=== PATIENT | female | born 1985 | race Caucasian/White ===

== ENCOUNTER 2019-02-08 13:28 | Observation (INO) ==
[2019-02-08] MEDS ORDERED: PREDNISONE TAB 20 MG PO NR (15:00)
[2019-02-08] MEDS: NS 1000 ML 1,000 ML IV SCH ×2 (15:01→20:34)
[2019-02-08] MEDS: TUSSIONEX PENNKINETIC SUSP PO PRN (15:05)
[2019-02-08] MEDS: PULMICORT NEB TX 0.5 MG NEB SCH ×2 (15:18→20:17)
[2019-02-08 15:31] LABS: BASOPHILS % (AUTO) 0.2 % (0.2-1.0); EOSINOPHILS % (AUTO) 0.6 % (0.9-2.9); HEMATOCRIT 36.6 % (36.0-47.0); HEMOGLOBIN 12.3 g/dL (12.0-16.0); LYMPHOCYTES # (AUTO) 2.1 X10^3/uL (1.3-2.9); LYMPHOCYTES % (AUTO) 26.8 % (21.0-51.0); MEAN CORPUSCULAR HEMOGLOBIN 31.2 pg (27.0-34.0); MEAN CORPUSCULAR HGB CONC 33.6 g/dL (33.0-35.0); MEAN CORPUSCULAR VOLUME 92.9 fL (80.0-100.0); MEAN PLATELET VOLUME 9.1 fL (7.4-11.0); MONOCYTES # (AUTO) 0.6 x10^3/uL (0.3-0.8); MONOCYTES % (AUTO) 7.4 % (0.0-13.0); NEUTROPHILS # (AUTO) 5.1 x10^3/uL (2.2-4.8); PLATELET COUNT 193 X10^3/uL (150.0-450.0); RED BLOOD COUNT 3.94 X10^6/uL (3.5-5.4); RED CELL DISTRIBUTION WIDTH 14.7 % (11.6-16.5); WHITE BLOOD COUNT 7.9 X10^3/uL (3.6-10.0)
[2019-02-08 15:46] LABS: ALANINE AMINOTRANSFERASE 18 Units/L (12-78); ALBUMIN 2.4 g/dL (3.4-5.0); ALKALINE PHOSPHATASE 127 Units/L (46-116); ASPARTATE AMINO TRANSFERASE 19 Units/L (15-37); BLOOD UREA NITROGEN 4 mg/dL (7-18); CARBON DIOXIDE 24.1 mmol/L (21-32); CHLORIDE 104 mmol/L (98-107); COR CA(FOR HYPOALB) 10.3 mg/dL (8.5-10.1); SODIUM 139 mmol/L (136-145); TOTAL PROTEIN 6.6 g/dL (6.4-8.2); eGFR NON BLACK RACES > 60 (>60)
[2019-02-08 16:25] VITALS: BMI 43.9
[2019-02-08] MEDS ORDERED: TYLENOL 325 MG TAB PO PRN (17:33)
[2019-02-08] MEDS ORDERED: PHENERGAN INJ 25 MG IM PRN (17:33)
[2019-02-08 17:35] LABS: BILIRUBIN,URINE NEGATIVE (NEGATIVE); BLOOD/HEMOGLOBIN,URINE NEGATIVE (NEGATIVE); GLUCOSE, URINE NEGATIVE (NEGATIVE); KETONES,URINE 2+ (NEGATIVE); LEUKOCYTE ESTERASE ,URINE 1+ (NEGATIVE); NITRITES,URINE NEGATIVE (NEGATIVE); PROTEIN,URINE 2+ (NEGATIVE); UROBILINOGEN,URINE NORMAL (NORMAL)
[2019-02-08] MEDS ORDERED: TYLENOL 325 MG TAB PO ONE (17:38)
[2019-02-08 17:45] LABS: APPEARANCE,URINE HAZY (CLEAR); COLOR,URINE DARK YELLOW (YELLOW)
[2019-02-08 17:47] LABS: BACTERIA,URINE TRACE /HPF (NEGATIVE); MUCUS,URINE FEW /HPF (NEGATIVE); RBC,URINE 0-2 /HPF (NONE SEEN); SQUAMOUS EPITHELIAL CELL,UR MODERATE /HPF (NEGATIVE)
[2019-02-08] MEDS: ZOFRAN INJ 4 MG VIAL IVP PRN (18:23)
[2019-02-08] MEDS: SINGULAIR TAB 10 MG PO SCH (20:34)
[2019-02-08] MEDS: ATIVAN INJ 2 MG VIAL IVP PRN (20:34)
[2019-02-09] MEDS: TUSSIONEX PENNKINETIC SUSP PO PRN (03:06)
[2019-02-09] MEDS: ZOFRAN INJ 4 MG VIAL IVP PRN ×3 (03:06→18:18)
[2019-02-09] MEDS: NS 1000 ML 1,000 ML IV SCH ×3 (03:06→16:28)
[2019-02-09 06:29] LABS: BASOPHILS % (AUTO) 0.2 % (0.2-1.0); EOSINOPHILS % (AUTO) 0.5 % (0.9-2.9); HEMATOCRIT 32.6 % (36.0-47.0); LYMPHOCYTES # (AUTO) 2.1 X10^3/uL (1.3-2.9); LYMPHOCYTES % (AUTO) 30.5 % (21.0-51.0); MEAN CORPUSCULAR HEMOGLOBIN 31.5 pg (27.0-34.0); MEAN CORPUSCULAR HGB CONC 33.7 g/dL (33.0-35.0); MEAN CORPUSCULAR VOLUME 93.4 fL (80.0-100.0); MEAN PLATELET VOLUME 8.9 fL (7.4-11.0); MONOCYTES # (AUTO) 0.5 x10^3/uL (0.3-0.8); MONOCYTES % (AUTO) 6.8 % (0.0-13.0); NEUTROPHILS # (AUTO) 4.2 x10^3/uL (2.2-4.8); PLATELET COUNT 176 X10^3/uL (150.0-450.0); RED BLOOD COUNT 3.49 X10^6/uL (3.5-5.4); RED CELL DISTRIBUTION WIDTH 14.8 % (11.6-16.5); WHITE BLOOD COUNT 6.7 X10^3/uL (3.6-10.0)
[2019-02-09 06:51] LABS: ALANINE AMINOTRANSFERASE 16 Units/L (12-78); ALBUMIN 2.1 g/dL (3.4-5.0); ALKALINE PHOSPHATASE 109 Units/L (46-116); ASPARTATE AMINO TRANSFERASE 15 Units/L (15-37); BLOOD UREA NITROGEN 2 mg/dL (7-18); CALCIUM 8.6 mg/dL (8.5-10.1); CARBON DIOXIDE 23.3 mmol/L (21-32); CHLORIDE 108 mmol/L (98-107); COR CA(FOR HYPOALB) 10.1 mg/dL (8.5-10.1); SODIUM 141 mmol/L (136-145); TOTAL PROTEIN 5.7 g/dL (6.4-8.2); eGFR NON BLACK RACES > 60 (>60)
[2019-02-09] MEDS ORDERED: K-RIDER 10 MEQ/NS 100 ML 10 MEQ/100 ML BAG IV PRN (08:47)
[2019-02-09] MEDS ORDERED: K-DUR TAB 20 MEQ PO PRN (08:47)
[2019-02-09] MEDS ORDERED: MICRO K EXTEN CAP 10 MEQ PO PRN (08:47)
[2019-02-09] MEDS ORDERED: POTASSIUM CHL 40 MEQ/NS 0.45% 500 ML IV PRN (08:47)
[2019-02-09] MEDS ORDERED: KLOR-CON PO PRN (08:47)
[2019-02-09] MEDS ORDERED: POTASSIUM CHLORIDE LIQ 20 MEQ UDC PO PRN (08:47)
[2019-02-09] MEDS ORDERED: POTASSIUM CHL 60 MEQ/NS 0.45% 500 ML IV PRN (08:47)
[2019-02-09] MEDS ORDERED: PREDNISONE TAB 10 MG PO NR (09:00)
[2019-02-09] MEDS: PULMICORT NEB TX 0.5 MG NEB SCH ×2 (09:03→20:53)
[2019-02-09] MEDS ORDERED: XOPENEX 1.25 MG/3 ML NEBULE NEB PRN (10:39)
[2019-02-09] MEDS: MAGNESIUM SULFATE 1 GRAM/100 mL PREMIX 1 GM/100 ML BAG IV ONE ×2 (10:49→12:27)
[2019-02-09] MEDS ORDERED: MAGNESIUM SULFATE 1 GRAM/100 mL PREMIX 2 G/200 ML BAG IV ONE (10:51)
[2019-02-09] MEDS ORDERED: ASTELIN NASAL SPRAY ONE (12:23)
[2019-02-09] MEDS: FLONASE NASAL SPRAY ENOSTRIL SCH (12:24)
[2019-02-09] MEDS: ASTELIN NASAL SPRAY ENOSTRIL SCH ×3 (12:26→21:22)
[2019-02-09] MEDS: K-DUR TAB 20 MEQ PO SCH (12:27)
[2019-02-09] MEDS: ATIVAN INJ 2 MG VIAL IVP PRN (19:48)
[2019-02-09] MEDS: SINGULAIR TAB 10 MG PO SCH (20:03)
[2019-02-10] MEDS: NS 1000 ML 1,000 ML IV SCH ×3 (00:33→06:07)
[2019-02-10] MEDS: ASTELIN NASAL SPRAY ENOSTRIL SCH ×2 (05:11→15:14)
[2019-02-10 05:32] LABS: BASOPHILS % (AUTO) 0.2 % (0.2-1.0); EOSINOPHILS # (AUTO) 0.1 x10^3/uL (0.0-0.2); EOSINOPHILS % (AUTO) 0.7 % (0.9-2.9); HEMATOCRIT 31.1 % (36.0-47.0); HEMOGLOBIN 10.4 g/dL (12.0-16.0); LYMPHOCYTES # (AUTO) 2.5 X10^3/uL (1.3-2.9); LYMPHOCYTES % (AUTO) 33.3 % (21.0-51.0); MEAN CORPUSCULAR HEMOGLOBIN 31.4 pg (27.0-34.0); MEAN CORPUSCULAR HGB CONC 33.4 g/dL (33.0-35.0); MEAN CORPUSCULAR VOLUME 93.9 fL (80.0-100.0); MEAN PLATELET VOLUME 9.2 fL (7.4-11.0); MONOCYTES # (AUTO) 0.4 x10^3/uL (0.3-0.8); MONOCYTES % (AUTO) 5.8 % (0.0-13.0); NEUTROPHILS # (AUTO) 4.5 x10^3/uL (2.2-4.8); PLATELET COUNT 175 X10^3/uL (150.0-450.0); RED BLOOD COUNT 3.32 X10^6/uL (3.5-5.4); RED CELL DISTRIBUTION WIDTH 14.9 % (11.6-16.5); WHITE BLOOD COUNT 7.6 X10^3/uL (3.6-10.0)
[2019-02-10 05:40] LABS: ALANINE AMINOTRANSFERASE 13 Units/L (12-78); ALBUMIN 1.9 g/dL (3.4-5.0); ALKALINE PHOSPHATASE 96 Units/L (46-116); ASPARTATE AMINO TRANSFERASE 15 Units/L (15-37); BLOOD UREA NITROGEN 3 mg/dL (7-18); CALCIUM 8.2 mg/dL (8.5-10.1); CARBON DIOXIDE 21.9 mmol/L (21-32); CHLORIDE 109 mmol/L (98-107); COR CA(FOR HYPOALB) 9.9 mg/dL (8.5-10.1); CREATININE 0.65 mg/dL (0.55-1.02); MAGNESIUM 1.7 mg/dL (1.7-2.9); SODIUM 141 mmol/L (136-145); TOTAL PROTEIN 5.3 g/dL (6.4-8.2); eGFR NON BLACK RACES > 60 (>60)
[2019-02-10] MEDS: K-DUR TAB 20 MEQ PO SCH (08:48)
[2019-02-10] MEDS: ZOFRAN INJ 4 MG VIAL IVP PRN (08:48)
[2019-02-10] MEDS: FLONASE NASAL SPRAY ENOSTRIL SCH (08:48)
[2019-02-10] MEDS: PULMICORT NEB TX 0.5 MG NEB SCH (09:01)
[2019-02-10 17:13] VITALS: BP 138/56
== END 2019-02-10 17:15 | disposition home or self-care (01) ==
LOC: MED/SURG
PROVIDERS: ADMIT Obstetrics & Gynecology Obstetrics; ATTEND Obstetrics & Gynecology Obstetrics
DX: J30.89 Other allergic rhinitis; J45.998 Other asthma; Z33.1 Pregnant state, incidental; E87.6 Hypokalemia; F41.8 Other specified anxiety disorders
CPT/HCPCS: 36415; 80053; 81001; 83735; 85025; 94640; 94760; 96367; 96374; A4222; G0378; J2060; J2405; J3475; J3490; J7030; J7512; J7626

== ENCOUNTER 2019-03-08 06:12 | Inpatient (IN) ==
[2019-03-08] MEDS ORDERED: ANCEF 1 GRAM IV PREMIX* 1 G/50 ML BAG IV ONE (06:24)
[2019-03-08] MEDS ORDERED: LR 1000 ML IV 1,000 ML ONE ×2 (06:24→08:08)
[2019-03-08] MEDS ORDERED: D5 1/2 NS 1000 ML 1,000 ML IV SCH (06:38)
[2019-03-08] MEDS ORDERED: ANCEF VIAL 1 GRAM IVP ONE (06:38)
[2019-03-08] MEDS ORDERED: DILAUDID INJ ONE (07:22)
[2019-03-08 07:51] LABS: BILIRUBIN,URINE NEGATIVE (NEGATIVE); BLOOD/HEMOGLOBIN,URINE 5+ (NEGATIVE); GLUCOSE, URINE NEGATIVE (NEGATIVE); KETONES,URINE 2+ (NEGATIVE); LEUKOCYTE ESTERASE ,URINE 1+ (NEGATIVE); NITRITES,URINE NEGATIVE (NEGATIVE); PROTEIN,URINE 2+ (NEGATIVE); UROBILINOGEN,URINE 1+ (NORMAL)
[2019-03-08 07:54] LABS: APPEARANCE,URINE CLOUDY (CLEAR); COLOR,URINE YELLOW (YELLOW)
[2019-03-08 07:57] LABS: RBC,URINE 20-30 /HPF (NONE SEEN)
[2019-03-08 07:58] LABS: BACTERIA,URINE TRACE /HPF (NEGATIVE); MUCUS,URINE MODERATE /HPF (NEGATIVE); SQUAMOUS EPITHELIAL CELL,UR FEW /HPF (NEGATIVE)
[2019-03-08] MEDS ORDERED: D5 1/2 NS 1L W PITOCIN 20 UNITS/L 20 UNITS/1,000 ML BAG IV ONE (08:46)
[2019-03-08] MEDS ORDERED: REGLAN INJ 10 MG VIAL IVP PRN ×2 (09:08→09:19)
[2019-03-08] MEDS ORDERED: PHENERGAN INJ 25 MG IM PRN ×2 (09:08→17:32)
[2019-03-08] MEDS ORDERED: DILAUDID INJ IVP PRN (09:08)
[2019-03-08] MEDS ORDERED: ZOFRAN INJ 4 MG VIAL IVP PRN ×2 (09:08→09:19)
[2019-03-08] MEDS ORDERED: TORADOL 30 MG VIAL IVP PRN (09:19)
[2019-03-08] MEDS ORDERED: NARCAN INJ IVP PRN (09:19)
[2019-03-08] MEDS ORDERED: HYPERRHO S/D (or RHOGAM) IM PRN (09:19)
[2019-03-08] MEDS ORDERED: MYLICON TAB 80 MG CHEW PO PRN (09:19)
[2019-03-08] MEDS ORDERED: PERCOCET TAB 5/325 MG PO PRN (09:19)
[2019-03-08] MEDS ORDERED: ADACEL or BOOSTRIX TDaP VACCINE IM ONE (09:19)
[2019-03-08] MEDS ORDERED: D5 1/2 NS 1000 ML 1,000 ML with PITOCIN 20 UNITS IV SCH ×2 (10:00)
[2019-03-08] MEDS ORDERED: EPHEDRINE SULFATE INJ ONE (14:43)
[2019-03-08] MEDS ORDERED: MARCAINE SPINAL ONE (14:43)
[2019-03-08] MEDS ORDERED: PITOCIN ONE (14:43)
[2019-03-08] MEDS ORDERED: ZOFRAN INJ 4 MG VIAL ONE (14:43)
[2019-03-08] MEDS ORDERED: XYLOCAINE 1 % (PLAIN) ONE (14:43)
[2019-03-08] MEDS ORDERED: VERSED ONE (14:43)
[2019-03-08] MEDS ORDERED: PHENERGAN INJ 25 MG IM ONE (17:36)
[2019-03-08] MEDS: ZANTAC PO SCH (21:31)
[2019-03-09 05:27] LABS: HEMATOCRIT 34.9 % (36.0-47.0); HEMOGLOBIN 11.4 g/dL (12.0-16.0)
[2019-03-09] MEDS: PERCOCET TAB 5/325 MG PO PRN ×2 (07:10→20:49)
[2019-03-09] MEDS: COLACE CAP 100 MG PO SCH ×2 (10:55→20:04)
[2019-03-09] MEDS: PRENATAL PLUS PO SCH (10:56)
[2019-03-09] MEDS: ZANTAC PO SCH ×2 (10:56→20:04)
[2019-03-09] MEDS: MOTRIN TAB 800 MG PO PRN ×2 (13:20→20:05)
[2019-03-09] MEDS: BACTROBAN CREAM TOP SCH ×2 (13:49→22:07)
[2019-03-10] MEDS: PERCOCET TAB 5/325 MG PO PRN ×2 (01:41→08:03)
[2019-03-10] MEDS: MOTRIN TAB 800 MG PO PRN (05:00)
[2019-03-10] MEDS: BACTROBAN CREAM TOP SCH (05:00)
[2019-03-10] MEDS: ZANTAC PO SCH (08:03)
[2019-03-10] MEDS: COLACE CAP 100 MG PO SCH (08:03)
[2019-03-10] MEDS: PRENATAL PLUS PO SCH (08:03)
[2019-03-10 08:52] VITALS: BP 90/43
== END 2019-03-10 11:15 | disposition home or self-care (01) | DRG 784 ==
LOC: LD 06:12 → MED/SURG 10:00
PROVIDERS: ADMIT Specialist; ATTEND Specialist
DX: O40.3XX0 Polyhydramnios, third trimester, not applicable or unspecified; O34.211 Maternal care for low transverse scar from previous cesarean delivery; Z3A.38 38 weeks gestation of pregnancy; Z37.0 Single live birth; Z23 Encounter for immunization; Z30.2 Encounter for sterilization; O36.0930 Maternal care for other rhesus isoimmunization, third trimester, not applicable or unspecified; Z01.818 Encounter for other preprocedural examination; N85.8 Other specified noninflammatory disorders of uterus
CPT/HCPCS: 36415; 80048; 81001; 85014; 85018; 85025; 85610; 85730; 86592; 86850; 86900; 86901; 87086; 90715; A4216; A4222; S0197; J0690; J1170; J1885; J2250; J2310; J2405; J2550; J2590; J2765; J3490; J7120

== ENCOUNTER 2020-07-24 12:40 | Inpatient (IN) ==
--- NOTE | 2020-07-24 13:48 | DR.SOBA ---
HPI Time Seen Time Seen by Provider: 07/24/20 13:36 Primary Care Physician Primary Care Physician: PEDRO LUIS JALLOH Complaints Chief Complaint Doctors Comments: was treated with Plaquenil after Diagnosis.Also on inhaler. States she gets hypoxic with ambulation. Chief Complaint:: TESTED POSTIVE LAST WEEK AFTER EXPOSURE ON AT [employer] TESTING. ENTIRE FAMILY POSITIVE. GRADUALLY WORSENING UNTIL LAST NIGHT SIGNIFICANTLY WORSE. PT TACHYPNIC, LEGS DISCOLORED. NO PRODUCTIVE COUGH. TIGHTNESS TO CHEST. Self Treatment fo Chief Complaint: TAKING THE VITAMINS AND ZPACK RECENTLY COVID-19 Coronavirus risk:travel/contact w/high risk person: Yes Has patient experienced Coronavirus symptoms: Yes Coronavirus symptoms experienced: Fever, Coughing and Shortness of Breath Reviewed Nurses Notes Reviewed: Yes Source History Provided: Patient Mode of Arrival Mode of Arrival: Ambulatory Timing Onset of Chief Complaint: 07/23/20 Duration Duration: Days Context Onset:: With Light Exertion PE Risk Factors:: None History of:: None Currently on:: Inhaled Bronchodilators Modifying Factors Worsens:: Exertion Improves:: Rest Associated Signs and Symptoms Associated Signs and Symptoms: Anxiety If Cough Cough: None PMH PMH Past Medical History: No Past Surgical History: Yes Surgical History: and Cholecystectomy Family History History of Family Medical Conditions: Yes Family Medical History: Coronary Artery Disease and Hypertension Social History Type of Tobacco Use: None Does any household member use tobacco: No Alcohol Use: None Do you use any recreational Drugs:: No Lives With: Family Lives Where: Home Travel Risk Coronavirus risk:travel/contact w/high risk person: Yes Has patient experienced Coronavirus symptoms: Yes Coronavirus symptoms experienced: Fever, Coughing and Shortness of Breath Infectious screening In the last 2 months have you had wt loss of >10#?: NO Have you had fever, night sweats or hemotysis?: No Have you traveled outside the country in the last 6 months?: No Isolation: Standard ROS Review of Systems Constitutional: Weakness Eyes: No Symptoms Reported ENTM: No Symptoms Reported Respiratoy: Short of Breath Cardiovascular: No Symptoms Reported Gastrointestinal/Abdominal: Nausea Genitourinary: No Symptoms Reported Neurological: No Symptoms Reported Musculoskeletal: No Symptoms Reported Integumentary: No Symptoms Reported Hematologic/Lymphatic: No Symptoms Reported Endocrine: No Symptoms Reported Psychiatric: Anxiety All Other Systems: Reviewed and Negative PE Vital Signs Vitals: Temperature 98.0 F Pulse Rate 77 Respiratory Rate 36 Blood Pressure [Right Arm] 90/43 Blood Pressure [Left Arm] 114/70 Blood Pressure 126/99 O2 Sat by Pulse Oximetry 100 General Limitations: No Limitations General Appearance: Alert and In No Apparent Distress Head Head Exam: Normal Inspection, Atraumatic and Normocephalic Eyes Eye exam: Normal Appearance and EOMI ENT ENT Exam: Normal Exam and Normal Oropharynx Neck Neck Exam: Normal Inspection, Full ROM and Trachea Midline Chest Chest Inspection: Normal Inspection Respiratory Respiratory Exam: Normal Lung Sounds Bilat; negative Respiratory Distress Respiratory Exam: Bilateral: Clear to Auscultation Cardiovascular Cardiovascular Exam: Regular Rate Abdominal Exam Abdominal Exam: Normal Inspection and Soft Extremities Extremities Exam: Normal Inspection and Full ROM Back Back Exam: Normal Inspection and Full ROM Neurologic Neurological Exam: Alert, Oriented X3, CN II-XII Intact and Normal Gait Psychiatric Psychiatric Exam: Anxious Skin Skin Exam: Normal Color COURSE Treatment Treatment: 0400: patient oxygen decreases with ambulation and returns to normal afterwards. Will discharge on dexamethasone and arrange home oxygen . 1848: case discussed with DR. Hilario admit for covid19 pneumonia ROR Labs Reviewed Result Diagrams: 07/24/20 13:26 07/24/20 13:26 Laboratory: WBC 5.4 X10^3/uL (3.6-10.0) 07/24/20 13:26 RBC 5.17 X10^6/uL (3.5-5.4) 07/24/20 13:26 Hgb 15.0 g/dL (12.0-16.0) 07/24/20 13:26 Hct 45.7 % (36.0-47.0) 07/24/20 13:26 MCV 88.4 fL (80.0-100.0) 07/24/20 13:26 MCH 29.1 pg (27.0-34.0) 07/24/20 13:26 MCHC 32.9 g/dL (33.0-35.0) L 07/24/20 13:26 RDW 13.9 % (11.6-16.5) 07/24/20 13:26 Plt Count 121 X10^3/uL (150.0-450.0) L 07/24/20 13:26 MPV 9.7 fL (7.4-11.0) 07/24/20 13:26 Neut % (Auto) 53.4 % (42.0-75.0) 07/24/20 13:26 Lymph % (Auto) 36.5 % (21.0-51.0) 07/24/20 13:26 [place] % (Auto) 9.8 % (0.0-13.0) 07/24/20 13:26 Eos % (Auto) 0.0 % (0.9-2.9) L 07/24/20 13:26 Baso % (Auto) 0.3 % (0.2-1.0) 07/24/20 13:26 Neut # (Auto) 2.9 x10^3/uL (2.2-4.8) 07/24/20 13:26 Lymph # (Auto) 2.0 X10^3/uL (1.3-2.9) 07/24/20 13:26 [place] # (Auto) 0.5 x10^3/uL (0.3-0.8) 07/24/20 13:26 Eos # (Auto) 0.0 x10^3/uL (0.0-0.2) 07/24/20 13:26 Baso # (Auto) 0.0 X10^3/uL (0.0-0.1) 07/24/20 13:26 Absolute Nucleated RBC 0.1 /100WBC 07/24/20 13:26 Sodium 139 mmol/L (136-145) 07/24/20 13:26 Corrected Sodium TNP 07/24/20 13:26 Potassium 3.7 mmol/L (3.5-5.1) 07/24/20 13:26 Chloride 102 mmol/L (98-107) 07/24/20 13:26 Carbon Dioxide 25.0 mmol/L (21-32) 07/24/20 13:26 BUN 12 mg/dL (7-18) 07/24/20 13:26 Creatinine 1.01 mg/dL (0.55-1.02) 07/24/20 13:26 Est GFR (MDRD) Af Amer > 60 (>60) 07/24/20 13:26 Est GFR (MDRD) Non-Af > 60 (>60) 07/24/20 13:26 Glucose 91 mg/dL (65-99) 07/24/20 13:26 Calcium 8.9 mg/dL (8.5-10.1) 07/24/20 13:26 Corrected Calcium TNP 07/24/20 13:26 Total Bilirubin 0.50 mg/dL (0.2-1.0) 07/24/20 13:26 AST 18 Units/L (15-37) 07/24/20 13:26 ALT 31 Units/L (12-78) 07/24/20 13:26 Alkaline Phosphatase 75 Units/L (46-116) 07/24/20 13:26 Creatine Kinase 19 Units/L (26-192) L 07/24/20 13:26 CK-MB (CK-2) < 1.0 ng/mL (0-4.0) 07/24/20 13:26 CK/CKMB % Calc 0.0 % (<4) 07/24/20 13:26 Troponin I < 0.02 ng/mL (0-1.5) 07/24/20 13:26 Total Protein 8.3 g/dL (6.4-8.2) H 07/24/20 13:26 Albumin 3.9 g/dL (3.4-5.0) 07/24/20 13:26 Globulin 4.4 g/dL (2.5-4.5) 07/24/20 13:26 Albumin/Globulin Ratio 0.9 Ratio (1.1-2.1) L 07/24/20 13:26 XRAY XRAY Interpreted by: Radiologist X-ray Results: chest : possible RLL pneumonia/atelectasis EKG Rate: 80 [place]: Normal Rhythm: NSR Block: None Hypertrophy: None ST: Normal Opioid Opioid Risk Tool Age (Aneesh box if 16-45): No History of Preadolescent Sexual Abuse: No Total: 0 Total Score Risk Category: Low Risk Copyright: Trent GALEANO predicting aberrant behaviors Diagnosis Discharge Problem: COVID-19 Dyspnea Qualifiers: Dyspnea type: dyspnea on exertion Qualified Code(s): R06.00 - Dyspnea, unspecif ied Instructions Forms: Precautions for COVID19 Patient Portal Social Distancing
[2020-07-24] MEDS ORDERED: XOPENEX 1.25 MG/3 ML NEBULE NEB ONE ×2 (13:56→14:47)
[2020-07-24] MEDS ORDERED: SOLU-Medrol 125 MG VIAL IVP ONE (13:57)
[2020-07-24 14:07] LABS: BASOPHILS % (AUTO) 0.3 % (0.2-1.0); HEMATOCRIT 45.7 % (36.0-47.0); LYMPHOCYTES % (AUTO) 36.5 % (21.0-51.0); MEAN CORPUSCULAR HEMOGLOBIN 29.1 pg (27.0-34.0); MEAN CORPUSCULAR HGB CONC 32.9 g/dL (33.0-35.0); MEAN CORPUSCULAR VOLUME 88.4 fL (80.0-100.0); MEAN PLATELET VOLUME 9.7 fL (7.4-11.0); MONOCYTES # (AUTO) 0.5 x10^3/uL (0.3-0.8); MONOCYTES % (AUTO) 9.8 % (0.0-13.0); NEUTROPHILS # (AUTO) 2.9 x10^3/uL (2.2-4.8); NEUTROPHILS % (AUTO) 53.4 % (42.0-75.0); PLATELET COUNT 121 X10^3/uL (150.0-450.0); RED BLOOD COUNT 5.17 X10^6/uL (3.5-5.4); RED CELL DISTRIBUTION WIDTH 13.9 % (11.6-16.5); WHITE BLOOD COUNT 5.4 X10^3/uL (3.6-10.0)
[2020-07-24 14:19] LABS: BLOOD UREA NITROGEN 12 mg/dL (7-18); CALCIUM 8.9 mg/dL (8.5-10.1); CHLORIDE 102 mmol/L (98-107); CREATININE 1.01 mg/dL (0.55-1.02); SODIUM 139 mmol/L (136-145); TROPONIN I < 0.02 ng/mL (0-1.5); eGFR NON BLACK RACES > 60 (>60)
[2020-07-24 14:23] LABS: ALANINE AMINOTRANSFERASE 31 Units/L (12-78); ALBUMIN 3.9 g/dL (3.4-5.0); ALKALINE PHOSPHATASE 75 Units/L (46-116); ASPARTATE AMINO TRANSFERASE 18 Units/L (15-37); CREATINE KINASE 19 Units/L (26-192); CREATINE KINASE MB < 1.0 ng/mL (0-4.0); TOTAL PROTEIN 8.3 g/dL (6.4-8.2)
[2020-07-24] MEDS ORDERED: SOLU-Medrol 125 MG VIAL ONE (14:33)
--- NOTE | 2020-07-24 14:48 | RAD ---
HISTORYSOBSTUDYCHEST, 1 VIEWCOMPARISONFINDINGSElevation of the right hemidiaphragm is present. There may be an airspace opacity in the right lung base. This could be atelectasis since it is associated with volume loss. Differential diagnosis could be pneumonia.Upper right lung and left lung are clear. No pleural effusion or pneumothorax.Heart size normal.The bones unremarkable.Surgical clips are present in the right upper quadrant, probably from a cholecystectomy. EKG leads are noted.IMPRESSION1. Possible right basilar atelectasis or pneumoniaElectronically signed by: Clarence Benjamin (Jul 24, 2020 14:47:37)
[2020-07-24] MEDS ORDERED: REMDESIVIR (INVESTIGATIONAL DRUG GS-5734) 200 MG in NS 250 ML IV 250 ML IV SCH (19:00)
[2020-07-24] MEDS ORDERED: PLAQUENIL PO SCH (21:00)
[2020-07-24] MEDS: ASCORBIC ACID INJ MULTI-DOSE VIAL 1,500 MG in NS 100 ML IV 100 ML IV SCH ×2 (21:45→22:38)
[2020-07-24] MEDS: ZINC SULFATE PO SCH (21:45)
[2020-07-24] MEDS: VITAMIN D (1.25MG) PO SCH (21:45)
[2020-07-24] MEDS: DECADRON TAB PO SCH (21:45)
[2020-07-24] MEDS: TRICOR TAB 160 MG PO SCH (21:45)
[2020-07-24] MEDS: LOVENOX INJ 30 MG SYR SC SCH (21:45)
[2020-07-24] MEDS: NS 1000 ML 1,000 ML IV SCH (21:45)
[2020-07-25] MEDS: ASCORBIC ACID INJ MULTI-DOSE VIAL 1,500 MG in NS 100 ML IV 100 ML IV SCH ×4 (02:18→20:30)
[2020-07-25 04:54] VITALS: BMI 40.8
[2020-07-25 05:44] LABS: BASOPHILS % (AUTO) 0.3 % (0.2-1.0); HEMATOCRIT 43.4 % (36.0-47.0); HEMOGLOBIN 14.3 g/dL (12.0-16.0); LYMPHOCYTES # (AUTO) 0.6 X10^3/uL (1.3-2.9); LYMPHOCYTES % (AUTO) 39.2 % (21.0-51.0); MEAN CORPUSCULAR HEMOGLOBIN 29.3 pg (27.0-34.0); MEAN CORPUSCULAR HGB CONC 32.9 g/dL (33.0-35.0); MEAN CORPUSCULAR VOLUME 89.2 fL (80.0-100.0); MEAN PLATELET VOLUME 10.1 fL (7.4-11.0); MONOCYTES # (AUTO) 0.1 x10^3/uL (0.3-0.8); MONOCYTES % (AUTO) 5.3 % (0.0-13.0); NEUTROPHILS # (AUTO) 0.9 x10^3/uL (2.2-4.8); NEUTROPHILS % (AUTO) 55.2 % (42.0-75.0); PLATELET COUNT 131 X10^3/uL (150.0-450.0); RED BLOOD COUNT 4.87 X10^6/uL (3.5-5.4); RED CELL DISTRIBUTION WIDTH 13.8 % (11.6-16.5)
[2020-07-25 06:01] LABS: WHITE BLOOD COUNT 1.7 X10^3/uL (3.6-10.0)
[2020-07-25] MEDS ORDERED: VITAMIN A PO SCH (09:00)
[2020-07-25] MEDS: DECADRON TAB PO SCH (10:06)
[2020-07-25] MEDS: LOVENOX INJ 30 MG SYR SC SCH ×2 (10:07→20:30)
[2020-07-25] MEDS: TRICOR TAB 160 MG PO SCH (10:08)
[2020-07-25] MEDS: VITAMIN D (1.25MG) PO SCH (10:09)
[2020-07-25] MEDS: ZINC SULFATE PO SCH ×2 (10:09→20:30)
[2020-07-25] MEDS ORDERED: NAPROSYN PO PRN (10:55)
--- NOTE | 2020-07-25 11:00 | DR.H&P ---
H&P History & Physical for Day of: H&P Date: 07/25/20 Chief Complaint Chief Complaint: Shortness of breath Allergies Allergies Allergy/AdvReac Type Severity Reaction Status Date / Time diphenhydramine Allergy Verified 07/24/20 12:56 [From Benadryl] tramadol Allergy Verified 07/24/20 12:56 History of Present Illness History of Present Illness: Pt is a 34 yo f presenting with dyspnea and shortness of breath. She stated testing positive for COVID19 recently at [facility] along with her entire family. She reports finished course of hydroxychloroquine, Z-pack, and prednisone that was prescribed to her. In the ED, she require supplemental O2. This morning she is requiring 2L nc. Labs/imaging: Wbc 1.7, Hgb 14.3, Plt 131, Na 139, K 3.7, Cr 1.01, Plt 91, CXR:1. Possible right basilar atelectasis or pneumonia. Will start pt on pneumonia protocol, her treatments include: IV Rocephin, Remdesivir, IV solumedrol, Bronchodilators, supplemental O2, Tricor, immune supporting supplements. Will swab for COVID19 today, continue to monitor and follow up labs/imaging in the morning. Past Surgical History Surgical History: and Cholecystectomy Family History Family Medical History: Diabetes Mellitus, Cancer, [place] and Hypertension Social History Type of Tobacco Use: None Does any household member use tobacco: No Alcohol Use: None Drug Use: None Medications Home Medications: diphenhydramine [From Benadryl] Allergy (Verified 07/24/20 12:56) tramadol Allergy (Verified 07/24/20 12:56) CONTINUE taking the following medications NK 07/24/20 [History] Labs Result Diagrams: 07/25/20 04:15 07/24/20 13:26 Labs: Laboratory WBC 1.7 X10^3/uL (3.6-10.0) L* D 07/25/20 04:15 RBC 4.87 X10^6/uL (3.5-5.4) 07/25/20 04:15 Hgb 14.3 g/dL (12.0-16.0) 07/25/20 04:15 Hct 43.4 % (36.0-47.0) 07/25/20 04:15 MCV 89.2 fL (80.0-100.0) 07/25/20 04:15 MCH 29.3 pg (27.0-34.0) 07/25/20 04:15 MCHC 32.9 g/dL (33.0-35.0) L 07/25/20 04:15 RDW 13.8 % (11.6-16.5) 07/25/20 04:15 Plt Count 131 X10^3/uL (150.0-450.0) L 07/25/20 04:15 MPV 10.1 fL (7.4-11.0) 07/25/20 04:15 Neut % (Auto) 55.2 % (42.0-75.0) 07/25/20 04:15 Lymph % (Auto) 39.2 % (21.0-51.0) 07/25/20 04:15 [place] % (Auto) 5.3 % (0.0-13.0) 07/25/20 04:15 Eos % (Auto) 0.0 % (0.9-2.9) L 07/25/20 04:15 Baso % (Auto) 0.3 % (0.2-1.0) 07/25/20 04:15 Neut # (Auto) 0.9 x10^3/uL (2.2-4.8) L 07/25/20 04:15 Lymph # (Auto) 0.6 X10^3/uL (1.3-2.9) L 07/25/20 04:15 [place] # (Auto) 0.1 x10^3/uL (0.3-0.8) L 07/25/20 04:15 Eos # (Auto) 0.0 x10^3/uL (0.0-0.2) 07/25/20 04:15 Baso # (Auto) 0.0 X10^3/uL (0.0-0.1) 07/25/20 04:15 Absolute Nucleated RBC 0.1 /100WBC 07/25/20 04:15 Sodium 139 mmol/L (136-145) 07/24/20 13:26 Corrected Sodium TNP 07/24/20 13:26 Potassium 3.7 mmol/L (3.5-5.1) 07/24/20 13:26 Chloride 102 mmol/L (98-107) 07/24/20 13:26 Carbon Dioxide 25.0 mmol/L (21-32) 07/24/20 13:26 BUN 12 mg/dL (7-18) 07/24/20 13:26 Creatinine 1.01 mg/dL (0.55-1.02) 07/24/20 13:26 Est GFR (MDRD) Af Amer > 60 (>60) 07/24/20 13:26 Est GFR (MDRD) Non-Af > 60 (>60) 07/24/20 13:26 Glucose 91 mg/dL (65-99) 07/24/20 13:26 Calcium 8.9 mg/dL (8.5-10.1) 07/24/20 13:26 Corrected Calcium TNP 07/24/20 13:26 Total Bilirubin 0.50 mg/dL (0.2-1.0) 07/24/20 13:26 AST 18 Units/L (15-37) 07/24/20 13:26 ALT 31 Units/L (12-78) 07/24/20 13:26 Alkaline Phosphatase 75 Units/L (46-116) 07/24/20 13:26 Creatine Kinase 19 Units/L (26-192) L 07/24/20 13:26 CK-MB (CK-2) < 1.0 ng/mL (0-4.0) 07/24/20 13:26 CK/CKMB % Calc 0.0 % (<4) 07/24/20 13:26 Troponin I < 0.02 ng/mL (0-1.5) 07/24/20 13:26 Total Protein 8.3 g/dL (6.4-8.2) H 07/24/20 13:26 Albumin 3.9 g/dL (3.4-5.0) 07/24/20 13:26 Globulin 4.4 g/dL (2.5-4.5) 07/24/20 13:26 Albumin/Globulin Ratio 0.9 Ratio (1.1-2.1) L 07/24/20 13:26 Review of Systems Constitutional: Chills Eyes: No Symptoms Reported ENT: No Symptoms Reported Respiratory: Cough, Shortness of Breath, Pleuritic Pain and Wheezing Cardiovascular: No Symptoms Reported Gastrointestinal: No Symptoms Reported Genitourinary: No Symptoms Reported Musculoskeletal: No Symptoms Reported Skin: No Symptoms Reported Neurological: No Symptoms Reported Physical Exam Vital Signs: Temperature 97.4 F Pulse Rate [Right] 51 Pulse Rate 77 Respiratory Rate 20 Blood Pressure [Right Arm] 90/43 Blood Pressure [Left Arm] 114/72 Blood Pressure 126/99 O2 Sat by Pulse Oximetry 96 Oriented: Normal Eyes: Normal Ear: Normal Nose: Normal Throat: Normal Respiratory: Rhonchi Throughout and Wheezes Throughout Cardiovascular: Normal : Normal Auscultation: Bowel Sounds: Normal Palpation: Normal Tenderness: Normal Skin: Normal Musculoskeletal: Normal Psychiatric: Normal Mood Description: Calm and Appropriate Affect: Normal Speech Pattern: Clear and Appropriate Assessment/Plan (1) Pneumonia due to COVID-19 virus: Status: Acute Plan: Will swab again for COVID19. IV Remdesivir, IV Solumedrol. supplemental O2, bronchodilators. Pneumonia protocol. Review H&P Reviewed: Yes Patient was examined?: Yes
[2020-07-25] MEDS ORDERED: TESSALON PERLES PO PRN (11:11)
[2020-07-25] MEDS ORDERED: TORADOL 30 MG VIAL IM ONE (12:00)
[2020-07-25] MEDS: ROCEPHIN VIAL 1 GRAM 1 G in NS 100 ML IV + SPIKE MINIBAG* 100 ML IV SCH (13:24)
[2020-07-25] MEDS: SOLU-Medrol 125 MG VIAL IVP SCH ×2 (13:25→21:45)
[2020-07-25] MEDS: DUONEB 0.5 MG/3 MG (3 mL) NEB SCH ×2 (13:45→18:30)
[2020-07-25] MEDS: REMDESIVIR (INVESTIGATIONAL DRUG GS-5734) 100 MG in NS 250 ML IV 250 ML IV SCH (21:45)
[2020-07-25] MEDS: NS 1000 ML 1,000 ML IV SCH (22:56)
[2020-07-26] MEDS: DUONEB 0.5 MG/3 MG (3 mL) NEB SCH ×5 (00:15→21:40)
[2020-07-26] MEDS: ASCORBIC ACID INJ MULTI-DOSE VIAL 1,500 MG in NS 100 ML IV 100 ML IV SCH ×4 (02:10→20:35)
[2020-07-26] MEDS: SOLU-Medrol 125 MG VIAL IVP SCH ×3 (05:24→21:30)
--- NOTE | 2020-07-26 05:35 | RAD ---
HISTORYPNEUMONIA, COVIDSTUDYCHEST, 1 [id number] trachea is midline. The cardiac silhouette is stable elevation of the right hemidiaphragm, similar to prior exam with persistent patchy right basilar atelectasis versus infiltrates.. The lungs are clear without focal infiltrate or effusion. The bony thorax is stable.IMPRESSIONElevated right hemidiaphragm with right basilar atelectasis versus infiltrates.Electronically signed by: Lorena Warner (Jul 26, 2020 05:34:34)
[2020-07-26 06:20] LABS: ALANINE AMINOTRANSFERASE 32 Units/L (12-78); ALBUMIN 3.3 g/dL (3.4-5.0); ALKALINE PHOSPHATASE 59 Units/L (46-116); ASPARTATE AMINO TRANSFERASE 17 Units/L (15-37); BLOOD UREA NITROGEN 14 mg/dL (7-18); CALCIUM 8.3 mg/dL (8.5-10.1); CARBON DIOXIDE 22.5 mmol/L (21-32); CHLORIDE 106 mmol/L (98-107); COR CA(FOR HYPOALB) 8.9 mg/dL (8.5-10.1); COR NA(FOR HYPERGLY) 143 mmol/L (136-145); CREATININE 1.05 mg/dL (0.55-1.02); SODIUM 141 mmol/L (136-145); TOTAL PROTEIN 6.9 g/dL (6.4-8.2); eGFR NON BLACK RACES > 60 (>60)
[2020-07-26 06:29] LABS: BASOPHILS % (AUTO) 0.1 % (0.2-1.0); HEMATOCRIT 40.2 % (36.0-47.0); LYMPHOCYTES # (AUTO) 0.6 X10^3/uL (1.3-2.9); LYMPHOCYTES % (AUTO) 15.1 % (21.0-51.0); MEAN CORPUSCULAR HEMOGLOBIN 29.5 pg (27.0-34.0); MEAN CORPUSCULAR HGB CONC 32.4 g/dL (33.0-35.0); MEAN CORPUSCULAR VOLUME 91.2 fL (80.0-100.0); MEAN PLATELET VOLUME 10.6 fL (7.4-11.0); MONOCYTES # (AUTO) 0.2 x10^3/uL (0.3-0.8); MONOCYTES % (AUTO) 5.9 % (0.0-13.0); NEUTROPHILS % (AUTO) 78.9 % (42.0-75.0); PLATELET COUNT 102 X10^3/uL (150.0-450.0); RED BLOOD COUNT 4.41 X10^6/uL (3.5-5.4); RED CELL DISTRIBUTION WIDTH 13.9 % (11.6-16.5); WHITE BLOOD COUNT 3.8 X10^3/uL (3.6-10.0)
[2020-07-26] MEDS: VITAMIN A PO SCH (09:25)
[2020-07-26] MEDS: TRICOR TAB 160 MG PO SCH (09:29)
[2020-07-26] MEDS: LOVENOX INJ 30 MG SYR SC SCH ×2 (09:30→20:35)
[2020-07-26] MEDS: VITAMIN D3 125 mcg (5,000 UNITS) PO SCH (09:30)
[2020-07-26] MEDS: ZINC SULFATE PO SCH ×2 (09:30→20:35)
[2020-07-26] MEDS: ROCEPHIN VIAL 1 GRAM 1 G in NS 100 ML IV + SPIKE MINIBAG* 100 ML IV SCH (10:46)
--- NOTE | 2020-07-26 12:21 | PCM.PROG ---
Progress Note Progress Note for Day of Date of Exam: 07/26/20 Subjective Subjective: Pt is a 34 yo f admitted for COVID19 pneumonia (positive at [facility], repeat swab pending). This morning she is still feeling short of breath and weak but slight improvement compared to yesterday. Labs/imaging: Wbc 3.8, Hgb 13, Plt 102, Na 141, K 4.1, Cr 1.05, Gluc 198, CRP 12.9>4.7. CXR: Elevated right hemidiaphragm with right basilar atelectasis versus infiltrates. Her treatment course includes: IV Rocephin, Remdesivir, IV solumedrol, Bronchodilators, supplemental O2, Tricor, I/S, immune supporting supplements, pneumonia protocol. Check d-dimer. Continue to monitor and follow up labs/imaging in the morning. Past Medical Family Social History Past Med/Fam/Surg Hx: No changes since H&P Allergies: Allergies diphenhydramine [From Benadryl] Allergy (Verified 07/24/20 12:56) tramadol Allergy (Verified 07/24/20 12:56) Review of Systems ROS: No change since H&P Vital Signs and I&O's Vital Signs: Temperature 98.4 F Pulse Rate [Right] 79 Pulse Rate 59 Respiratory Rate 24 Blood Pressure [Right Arm] 124/64 Blood Pressure [Left Arm] 95/54 Blood Pressure 126/99 O2 Sat by Pulse Oximetry 96 Intake and Output: Intake & Output 07/23/20 07/24/20 07/25/20 07/26/20 23:59 23:59 23:59 23:59 Intake Total 610 / 610 2322 / 2322 470 / 470 Balance 610 / 610 2322 / 2322 470 / 470 Physical Exam Oriented: Normal Eyes: Normal Ear: Normal Nose: Normal Throat: Normal Respiratory: Diminished and Rales Cardiovascular: Normal : Normal Auscultation: Bowel Sounds: Normal Tenderness: Normal Skin: Normal Musculoskeletal: Normal Psychiatric: Normal Mood Description: Calm and Appropriate Affect: Normal Speech Pattern: Clear and Appropriate Laboratory and Diagnostics Result Diagrams: 07/26/20 04:35 07/26/20 04:35 Labs: Laboratory WBC 3.8 X10^3/uL (3.6-10.0) 07/26/20 04:35 RBC 4.41 X10^6/uL (3.5-5.4) 07/26/20 04:35 Hgb 13.0 g/dL (12.0-16.0) 07/26/20 04:35 Hct 40.2 % (36.0-47.0) 07/26/20 04:35 MCV 91.2 fL (80.0-100.0) 07/26/20 04:35 MCH 29.5 pg (27.0-34.0) 07/26/20 04:35 MCHC 32.4 g/dL (33.0-35.0) L 07/26/20 04:35 RDW 13.9 % (11.6-16.5) 07/26/20 04:35 Plt Count 102 X10^3/uL (150.0-450.0) L 07/26/20 04:35 MPV 10.6 fL (7.4-11.0) 07/26/20 04:35 Neut % (Auto) 78.9 % (42.0-75.0) H 07/26/20 04:35 Lymph % (Auto) 15.1 % (21.0-51.0) L 07/26/20 04:35 [place] % (Auto) 5.9 % (0.0-13.0) 07/26/20 04:35 Eos % (Auto) 0.0 % (0.9-2.9) L 07/26/20 04:35 Baso % (Auto) 0.1 % (0.2-1.0) L 07/26/20 04:35 Neut # (Auto) 3.0 x10^3/uL (2.2-4.8) 07/26/20 04:35 Lymph # (Auto) 0.6 X10^3/uL (1.3-2.9) L 07/26/20 04:35 [place] # (Auto) 0.2 x10^3/uL (0.3-0.8) L 07/26/20 04:35 Eos # (Auto) 0.0 x10^3/uL (0.0-0.2) 07/26/20 04:35 Baso # (Auto) 0.0 X10^3/uL (0.0-0.1) 07/26/20 04:35 Absolute Nucleated RBC 0.1 /100WBC 07/26/20 04:35 Sodium 141 mmol/L (136-145) 07/26/20 04:35 Corrected Sodium 143 mmol/L (136-145) 07/26/20 04:35 Potassium 4.1 mmol/L (3.5-5.1) 07/26/20 04:35 Chloride 106 mmol/L (98-107) 07/26/20 04:35 Carbon Dioxide 22.5 mmol/L (21-32) 07/26/20 04:35 BUN 14 mg/dL (7-18) 07/26/20 04:35 Creatinine 1.05 mg/dL (0.55-1.02) H 07/26/20 04:35 Est GFR (MDRD) Af Amer > 60 (>60) 07/26/20 04:35 Est GFR (MDRD) Non-Af > 60 (>60) 07/26/20 04:35 Glucose 198 mg/dL (65-99) H 07/26/20 04:35 Calcium 8.3 mg/dL (8.5-10.1) L 07/26/20 04:35 Corrected Calcium 8.9 mg/dL (8.5-10.1) 07/26/20 04:35 Total Bilirubin 0.20 mg/dL (0.2-1.0) 07/26/20 04:35 AST 17 Units/L (15-37) 07/26/20 04:35 ALT 32 Units/L (12-78) 07/26/20 04:35 Alkaline Phosphatase 59 Units/L (46-116) 07/26/20 04:35 Creatine Kinase 19 Units/L (26-192) L 07/24/20 13:26 CK-MB (CK-2) < 1.0 ng/mL (0-4.0) 07/24/20 13:26 CK/CKMB % Calc 0.0 % (<4) 07/24/20 13:26 Troponin I < 0.02 ng/mL (0-1.5) 07/24/20 13:26 C-Reactive Protein 4.70 mg/L (0-3.0) H 07/26/20 04:35 Total Protein 6.9 g/dL (6.4-8.2) 07/26/20 04:35 Albumin 3.3 g/dL (3.4-5.0) L 07/26/20 04:35 Globulin 3.6 g/dL (2.5-4.5) 07/26/20 04:35 Albumin/Globulin Ratio 0.9 Ratio (1.1-2.1) L 07/26/20 04:35 Plan (1) Pneumonia due to COVID-19 virus: Status: Acute Plan: COVID19 pending IV Remdesivir, IV Solumedrol. supplemental O2, bronchodilators. Pneumonia protocol.
[2020-07-26] MEDS: NORCO 5/325 MG TAB PO PRN (13:03)
[2020-07-26] MEDS ORDERED: ZOFRAN INJ 4 MG VIAL ONE (13:48)
[2020-07-26] MEDS: ZOFRAN INJ 4 MG VIAL IVP PRN (13:51)
[2020-07-26] MEDS: REMDESIVIR (INVESTIGATIONAL DRUG GS-5734) 100 MG in NS 250 ML IV 250 ML IV SCH (21:30)
[2020-07-26] MEDS: NS 1000 ML 1,000 ML IV SCH (22:31)
[2020-07-27] MEDS: NORCO 5/325 MG TAB PO PRN ×2 (01:09→20:42)
[2020-07-27] MEDS: ZOFRAN INJ 4 MG VIAL IVP PRN (01:09)
[2020-07-27] MEDS ORDERED: NS 100 ML IV 100 ML IV ONE ×2 (02:05→08:34)
[2020-07-27] MEDS: ASCORBIC ACID INJ MULTI-DOSE VIAL 1,500 MG in NS 100 ML IV 100 ML IV SCH ×4 (02:30→20:41)
[2020-07-27 05:22] LABS: BASOPHILS % (AUTO) 0.1 % (0.2-1.0); HEMATOCRIT 38.4 % (36.0-47.0); HEMOGLOBIN 12.6 g/dL (12.0-16.0); LYMPHOCYTES # (AUTO) 0.6 X10^3/uL (1.3-2.9); LYMPHOCYTES % (AUTO) 11.4 % (21.0-51.0); MEAN CORPUSCULAR HEMOGLOBIN 29.6 pg (27.0-34.0); MEAN CORPUSCULAR HGB CONC 32.9 g/dL (33.0-35.0); MEAN CORPUSCULAR VOLUME 89.8 fL (80.0-100.0); MEAN PLATELET VOLUME 10.4 fL (7.4-11.0); MONOCYTES # (AUTO) 0.2 x10^3/uL (0.3-0.8); MONOCYTES % (AUTO) 3.7 % (0.0-13.0); NEUTROPHILS # (AUTO) 4.8 x10^3/uL (2.2-4.8); NEUTROPHILS % (AUTO) 84.8 % (42.0-75.0); PLATELET COUNT 107 X10^3/uL (150.0-450.0); RED BLOOD COUNT 4.28 X10^6/uL (3.5-5.4); RED CELL DISTRIBUTION WIDTH 13.7 % (11.6-16.5); WHITE BLOOD COUNT 5.6 X10^3/uL (3.6-10.0)
[2020-07-27 05:30] LABS: ALANINE AMINOTRANSFERASE 37 Units/L (12-78); ALKALINE PHOSPHATASE 55 Units/L (46-116); ASPARTATE AMINO TRANSFERASE 21 Units/L (15-37); BLOOD UREA NITROGEN 13 mg/dL (7-18); CALCIUM 7.7 mg/dL (8.5-10.1); CARBON DIOXIDE 25.5 mmol/L (21-32); CHLORIDE 106 mmol/L (98-107); COR CA(FOR HYPOALB) 8.5 mg/dL (8.5-10.1); COR NA(FOR HYPERGLY) 143 mmol/L (136-145); CREATININE 0.95 mg/dL (0.55-1.02); SODIUM 141 mmol/L (136-145); TOTAL PROTEIN 6.6 g/dL (6.4-8.2); eGFR NON BLACK RACES > 60 (>60)
[2020-07-27] MEDS: SOLU-Medrol 125 MG VIAL IVP SCH ×3 (05:52→21:56)
[2020-07-27] MEDS ORDERED: ASCORBIC ACID INJ MULTI-DOSE VIAL IV ONE (08:28)
[2020-07-27] MEDS: LOVENOX INJ 30 MG SYR SC SCH ×2 (08:30→20:41)
[2020-07-27] MEDS: ROCEPHIN VIAL 1 GRAM 1 G in NS 100 ML IV + SPIKE MINIBAG* 100 ML IV SCH (08:31)
[2020-07-27] MEDS: TRICOR TAB 160 MG PO SCH (08:31)
[2020-07-27] MEDS: VITAMIN A PO SCH (08:31)
[2020-07-27] MEDS: VITAMIN D3 125 mcg (5,000 UNITS) PO SCH (08:31)
[2020-07-27] MEDS: COLACE CAP 100 MG PO PRN ×2 (08:31→21:55)
[2020-07-27] MEDS: ZINC SULFATE PO SCH ×2 (08:32→20:42)
[2020-07-27] MEDS: DUONEB 0.5 MG/3 MG (3 mL) NEB SCH ×4 (09:50→21:50)
--- NOTE | 2020-07-27 10:24 | PCM.PROG ---
Progress Note Progress Note for Day of Date of Exam: 07/27/20 Subjective Subjective: Pt is a 34 yo f admitted for COVID19 pneumonia (positive at [facility], 07/16). This morning she reports her breathing has improved compared to yesterday. She still remains weak and will get short of breath with ambulation. Labs/imaging: Wbc 5.6, Hgb 12.6, Plt 107, Na 141, K 3.9, Cr 0.95, Gluc 164, CRP 4.7>2.10, D-dimer negative. Her treatment course includes: IV Rocephin, Remdesivir, IV solumedrol, Bronchodilators, supplemental O2, Tricor, I/S, immune supporting supplements, pneumonia protocol. Will wean off supplemental O2 as tolerated today. Continue to monitor and follow up labs/imaging in the morning. Past Medical Family Social History Past Med/Fam/Surg Hx: No changes since H&P Allergies: Allergies diphenhydramine [From Benadryl] Allergy (Verified 07/24/20 12:56) tramadol Allergy (Verified 07/24/20 12:56) Review of Systems ROS: No change since H&P Vital Signs and I&O's Vital Signs: Temperature 97.7 F Pulse Rate [Right] 62 Pulse Rate 61 Respiratory Rate 20 Blood Pressure [Right Arm] 118/56 Blood Pressure [Left Arm] 95/54 Blood Pressure 126/99 O2 Sat by Pulse Oximetry 94 Intake and Output: Intake & Output 07/24/20 07/25/20 07/26/20 07/27/20 23:59 23:59 23:59 23:59 Intake Total 610 / 610 2322 / 2322 2038 758 / 758 Balance 610 / 610 2322 / 2322 2038 758 / 758 Physical Exam Oriented: Normal Eyes: Normal Ear: Normal Nose: Normal Throat: Normal Respiratory: Diminished Cardiovascular: Normal : Normal Auscultation: Bowel Sounds: Normal Tenderness: Normal Skin: Normal Musculoskeletal: Normal Psychiatric: Normal Mood Description: Calm and Appropriate Affect: Normal Speech Pattern: Clear and Appropriate Laboratory and Diagnostics Result Diagrams: 07/27/20 04:10 07/27/20 04:10 Labs: Laboratory WBC 5.6 X10^3/uL (3.6-10.0) 07/27/20 04:10 RBC 4.28 X10^6/uL (3.5-5.4) 07/27/20 04:10 Hgb 12.6 g/dL (12.0-16.0) 07/27/20 04:10 Hct 38.4 % (36.0-47.0) 07/27/20 04:10 MCV 89.8 fL (80.0-100.0) 07/27/20 04:10 MCH 29.6 pg (27.0-34.0) 07/27/20 04:10 MCHC 32.9 g/dL (33.0-35.0) L 07/27/20 04:10 RDW 13.7 % (11.6-16.5) 07/27/20 04:10 Plt Count 107 X10^3/uL (150.0-450.0) L 07/27/20 04:10 MPV 10.4 fL (7.4-11.0) 07/27/20 04:10 Neut % (Auto) 84.8 % (42.0-75.0) H 07/27/20 04:10 Lymph % (Auto) 11.4 % (21.0-51.0) L 07/27/20 04:10 [place] % (Auto) 3.7 % (0.0-13.0) 07/27/20 04:10 Eos % (Auto) 0.0 % (0.9-2.9) L 07/27/20 04:10 Baso % (Auto) 0.1 % (0.2-1.0) L 07/27/20 04:10 Neut # (Auto) 4.8 x10^3/uL (2.2-4.8) 07/27/20 04:10 Lymph # (Auto) 0.6 X10^3/uL (1.3-2.9) L 07/27/20 04:10 [place] # (Auto) 0.2 x10^3/uL (0.3-0.8) L 07/27/20 04:10 Eos # (Auto) 0.0 x10^3/uL (0.0-0.2) 07/27/20 04:10 Baso # (Auto) 0.0 X10^3/uL (0.0-0.1) 07/27/20 04:10 Absolute Nucleated RBC 0.0 /100WBC 07/27/20 04:10 D-Dimer < 200 ng/mLDDU (0-239) 07/26/20 12:50 Sodium 141 mmol/L (136-145) 07/27/20 04:10 Corrected Sodium 143 mmol/L (136-145) 07/27/20 04:10 Potassium 3.9 mmol/L (3.5-5.1) 07/27/20 04:10 Chloride 106 mmol/L (98-107) 07/27/20 04:10 Carbon Dioxide 25.5 mmol/L (21-32) 07/27/20 04:10 BUN 13 mg/dL (7-18) 07/27/20 04:10 Creatinine 0.95 mg/dL (0.55-1.02) 07/27/20 04:10 Est GFR (MDRD) Af Amer > 60 (>60) 07/27/20 04:10 Est GFR (MDRD) Non-Af > 60 (>60) 07/27/20 04:10 Glucose 164 mg/dL (65-99) H 07/27/20 04:10 Calcium 7.7 mg/dL (8.5-10.1) L 07/27/20 04:10 Corrected Calcium 8.5 mg/dL (8.5-10.1) 07/27/20 04:10 Total Bilirubin 0.20 mg/dL (0.2-1.0) 07/27/20 04:10 AST 21 Units/L (15-37) 07/27/20 04:10 ALT 37 Units/L (12-78) 07/27/20 04:10 Alkaline Phosphatase 55 Units/L (46-116) 07/27/20 04:10 Creatine Kinase 19 Units/L (26-192) L 07/24/20 13:26 CK-MB (CK-2) < 1.0 ng/mL (0-4.0) 07/24/20 13:26 CK/CKMB % Calc 0.0 % (<4) 07/24/20 13:26 Troponin I < 0.02 ng/mL (0-1.5) 07/24/20 13:26 C-Reactive Protein 2.10 mg/L (0-3.0) 07/27/20 04:10 Total Protein 6.6 g/dL (6.4-8.2) 07/27/20 04:10 Albumin 3.0 g/dL (3.4-5.0) L 07/27/20 04:10 Globulin 3.6 g/dL (2.5-4.5) 07/27/20 04:10 Albumin/Globulin Ratio 0.8 Ratio (1.1-2.1) L 07/27/20 04:10 Plan (1) Pneumonia due to COVID-19 virus: Status: Acute Plan: IV Remdesivir, IV Solumedrol. supplemental O2, bronchodilators. Pneumonia protocol.
[2020-07-27] MEDS: NS 1000 ML 1,000 ML IV SCH ×2 (17:41→19:44)
[2020-07-27] MEDS ORDERED: COLACE CAP 100 MG PO ONE (21:38)
[2020-07-27] MEDS: REMDESIVIR (INVESTIGATIONAL DRUG GS-5734) 100 MG in NS 250 ML IV 250 ML IV SCH (21:55)
[2020-07-28] MEDS: ASCORBIC ACID INJ MULTI-DOSE VIAL 1,500 MG in NS 100 ML IV 100 ML IV SCH ×4 (03:29→21:10)
[2020-07-28] MEDS: SOLU-Medrol 125 MG VIAL IVP SCH ×3 (05:28→22:02)
[2020-07-28 06:10] LABS: BASOPHILS % (AUTO) 0 % (0.2-1.0); HEMATOCRIT 37.1 % (36.0-47.0); HEMOGLOBIN 12.2 g/dL (12.0-16.0); LYMPHOCYTES # (AUTO) 0.7 X10^3/uL (1.3-2.9); LYMPHOCYTES % (AUTO) 14.8 % (21.0-51.0); MEAN CORPUSCULAR HEMOGLOBIN 29.6 pg (27.0-34.0); MEAN CORPUSCULAR HGB CONC 32.9 g/dL (33.0-35.0); MEAN CORPUSCULAR VOLUME 90.1 fL (80.0-100.0); MEAN PLATELET VOLUME 10.9 fL (7.4-11.0); MONOCYTES # (AUTO) 0.3 x10^3/uL (0.3-0.8); MONOCYTES % (AUTO) 5.3 % (0.0-13.0); NEUTROPHILS # (AUTO) 3.9 x10^3/uL (2.2-4.8); NEUTROPHILS % (AUTO) 79.9 % (42.0-75.0); PLATELET COUNT 98 X10^3/uL (150.0-450.0); RED BLOOD COUNT 4.12 X10^6/uL (3.5-5.4); RED CELL DISTRIBUTION WIDTH 13.7 % (11.6-16.5); WHITE BLOOD COUNT 4.9 X10^3/uL (3.6-10.0)
[2020-07-28 06:38] LABS: ALANINE AMINOTRANSFERASE 34 Units/L (12-78); ALKALINE PHOSPHATASE 56 Units/L (46-116); ASPARTATE AMINO TRANSFERASE 11 Units/L (15-37); BLOOD UREA NITROGEN 13 mg/dL (7-18); CARBON DIOXIDE 27.9 mmol/L (21-32); CHLORIDE 105 mmol/L (98-107); COR CA(FOR HYPOALB) 8.8 mg/dL (8.5-10.1); COR NA(FOR HYPERGLY) 142 mmol/L (136-145); CREATININE 0.77 mg/dL (0.55-1.02); SODIUM 140 mmol/L (136-145); TOTAL PROTEIN 6.3 g/dL (6.4-8.2); eGFR NON BLACK RACES > 60 (>60)
--- NOTE | 2020-07-28 08:27 | PCM.PROG ---
Progress Note Progress Note for Day of Date of Exam: 07/28/20 Subjective Subjective: Pt is a 34 yo f admitted for COVID19 pneumonia (positive at [facility], 07/16). This morning her respiratory status has slightly improved compared to yesterday. She was able to get ambulate to chair yesterday and did well with trial off oxygen but felt short of breath after going to bathroom, had nasal cannula placed back on. Labs/imaging: Wbc 4.9, Hgb 12.2, Plt 98, Na 140, K 4.2, Cr 0.77, Gluc 192, CRP 2.10>1.3. Her treatment course includes: IV Rocephin, Remdesivir, IV solumedrol, Bronchodilators, supplemental O2, Tricor, I/S, immune supporting supplements, pneumonia protocol. Will wean off supplemental O2 as tolerated. Decrease IV solumedrol from 80mg q8h to 60mg q12h. Continue to monitor and follow up labs/imaging in the morning. Past Medical Family Social History Past Med/Fam/Surg Hx: No changes since H&P Allergies: Allergies diphenhydramine [From Benadryl] Allergy (Verified 07/24/20 12:56) tramadol Allergy (Verified 07/24/20 12:56) Review of Systems ROS: No change since H&P Vital Signs and I&O's Vital Signs: Temperature 97.7 F Pulse Rate [Right] 52 Pulse Rate 54 Respiratory Rate 17 Blood Pressure [Right Arm] 120/57 Blood Pressure [Left Arm] 95/54 Blood Pressure 126/99 O2 Sat by Pulse Oximetry 95 Intake and Output: Intake & Output 07/25/20 07/26/20 07/27/20 07/28/20 23:59 23:59 23:59 23:59 Intake Total 2321 3258 / 3258 700 / 700 Balance 2321 3258 / 3258 700 / 700 Physical Exam Oriented: Normal Eyes: Normal Ear: Normal Nose: Normal Throat: Normal Respiratory: Diminished Cardiovascular: Normal : Normal Auscultation: Bowel Sounds: Normal Tenderness: Normal Skin: Normal Musculoskeletal: Normal Psychiatric: Normal Mood Description: Calm and Appropriate Affect: Normal Speech Pattern: Clear and Appropriate Laboratory and Diagnostics Result Diagrams: 07/28/20 04:45 07/28/20 04:45 Labs: Laboratory WBC 4.9 X10^3/uL (3.6-10.0) 07/28/20 04:45 RBC 4.12 X10^6/uL (3.5-5.4) 07/28/20 04:45 Hgb 12.2 g/dL (12.0-16.0) 07/28/20 04:45 Hct 37.1 % (36.0-47.0) 07/28/20 04:45 MCV 90.1 fL (80.0-100.0) 07/28/20 04:45 MCH 29.6 pg (27.0-34.0) 07/28/20 04:45 MCHC 32.9 g/dL (33.0-35.0) L 07/28/20 04:45 RDW 13.7 % (11.6-16.5) 07/28/20 04:45 Plt Count 98 X10^3/uL (150.0-450.0) L 07/28/20 04:45 MPV 10.9 fL (7.4-11.0) 07/28/20 04:45 Neut % (Auto) 79.9 % (42.0-75.0) H 07/28/20 04:45 Lymph % (Auto) 14.8 % (21.0-51.0) L 07/28/20 04:45 Victoria % (Auto) 5.3 % (0.0-13.0) 07/28/20 04:45 Eos % (Auto) 0.0 % (0.9-2.9) L 07/28/20 04:45 Baso % (Auto) 0 % (0.2-1.0) L 07/28/20 04:45 Neut # (Auto) 3.9 x10^3/uL (2.2-4.8) 07/28/20 04:45 Lymph # (Auto) 0.7 X10^3/uL (1.3-2.9) L 07/28/20 04:45 Victoria # (Auto) 0.3 x10^3/uL (0.3-0.8) 07/28/20 04:45 Eos # (Auto) 0.0 x10^3/uL (0.0-0.2) 07/28/20 04:45 Baso # (Auto) 0.0 X10^3/uL (0.0-0.1) 07/28/20 04:45 Absolute Nucleated RBC 0.2 /100WBC 07/28/20 04:45 D-Dimer < 200 ng/mLDDU (0-239) 07/26/20 12:50 Sodium 140 mmol/L (136-145) 07/28/20 04:45 Corrected Sodium 142 mmol/L (136-145) 07/28/20 04:45 Potassium 4.2 mmol/L (3.5-5.1) 07/28/20 04:45 Chloride 105 mmol/L (98-107) 07/28/20 04:45 Carbon Dioxide 27.9 mmol/L (21-32) 07/28/20 04:45 BUN 13 mg/dL (7-18) 07/28/20 04:45 Creatinine 0.77 mg/dL (0.55-1.02) 07/28/20 04:45 Est GFR (MDRD) Af Amer > 60 (>60) 07/28/20 04:45 Est GFR (MDRD) Non-Af > 60 (>60) 07/28/20 04:45 Glucose 192 mg/dL (65-99) H 07/28/20 04:45 Calcium 8.0 mg/dL (8.5-10.1) L 07/28/20 04:45 Corrected Calcium 8.8 mg/dL (8.5-10.1) 07/28/20 04:45 Total Bilirubin 0.20 mg/dL (0.2-1.0) 07/28/20 04:45 AST 11 Units/L (15-37) L 07/28/20 04:45 ALT 34 Units/L (12-78) 07/28/20 04:45 Alkaline Phosphatase 56 Units/L (46-116) 07/28/20 04:45 Creatine Kinase 19 Units/L (26-192) L 07/24/20 13:26 CK-MB (CK-2) < 1.0 ng/mL (0-4.0) 07/24/20 13:26 CK/CKMB % Calc 0.0 % (<4) 07/24/20 13:26 Troponin I < 0.02 ng/mL (0-1.5) 07/24/20 13:26 C-Reactive Protein 1.30 mg/L (0-3.0) 07/28/20 04:45 Total Protein 6.3 g/dL (6.4-8.2) L 07/28/20 04:45 Albumin 3.0 g/dL (3.4-5.0) L 07/28/20 04:45 Globulin 3.3 g/dL (2.5-4.5) 07/28/20 04:45 Albumin/Globulin Ratio 0.9 Ratio (1.1-2.1) L 07/28/20 04:45 Plan (1) Pneumonia due to COVID-19 virus: Status: Acute Plan: IV Remdesivir, IV Solumedrol. supplemental O2, bronchodilators. Pneumonia protocol.
[2020-07-28] MEDS ORDERED: COLACE CAP 100 MG PO ONE (08:46)
[2020-07-28] MEDS ORDERED: ROCEPHIN VIAL 1 GRAM ONE (08:49)
[2020-07-28] MEDS: ROCEPHIN VIAL 1 GRAM 1 G in NS 100 ML IV + SPIKE MINIBAG* 100 ML IV SCH (09:12)
[2020-07-28] MEDS: COLACE CAP 100 MG PO PRN (09:12)
[2020-07-28] MEDS: ZINC SULFATE PO SCH ×2 (09:12→21:12)
[2020-07-28] MEDS: VITAMIN A PO SCH (09:13)
[2020-07-28] MEDS: TRICOR TAB 160 MG PO SCH (09:13)
[2020-07-28] MEDS: VITAMIN D3 125 mcg (5,000 UNITS) PO SCH (09:13)
[2020-07-28] MEDS: LOVENOX INJ 30 MG SYR SC SCH ×2 (09:14→21:11)
[2020-07-28] MEDS: NORCO 5/325 MG TAB PO PRN (09:33)
[2020-07-28] MEDS: DUONEB 0.5 MG/3 MG (3 mL) NEB SCH ×4 (09:35→20:05)
--- OUTSIDE RECORDS SUMMARY | 2020-07-28 15:28 | XMS | Continuity of Care Document ---
:1985 Author Name Production Repairer Address Unavailable Unavailable , Care Team Providers Name Role Phone Rajeev ASSISTANT ART DIRECTOR, C Primary Care Provider Rajeev ASSISTANT ART DIRECTOR, C Unavailable Olvera Unavailable Unavailable Unavailable Unavailable Problems Name Dates Details Environmental and seasonal allergies (J30.89, 477.8) Comments: Currently has inflamed nasal mucosa and sinus congestion/pressure which is probably attributing to her bronchitis. I started her on Fluticasone nasal spray and Claritin po daily.Hx of seasonal allergies. Status: Active Fatigue (R53.83, 780.79) Comments: Ck HG BS/P delivery 3 weeks ago Status: Active Heart palpitations (R00.2, 785.1) Status : Active Low back pain (M54.5, 724.2) Status: Act reba Situational anxiety (F41.8, 300.09) Comm ents: Past history of anxiety and hypoglycemia/ s/p C section delivery approx 6 months ago. Status: Active Varicose veins of leg with edema (I83.899, 454.8) Status: Active Medications Name Dates Details Ibuprofen 800 MG Oral Tablet Active 1 TID, PRN (800 MG) cefTRIAXone Sodium 1 GM Injection Solution Reconstitut ed Ordered: 06-Feb-2019 1 (one) gram Liz Dickerson Start : 06-Feb-2019 End : 06-Feb-2019 Administered Comments:Site: Buttocks, (R); Given with Lid 2% ml cefTRIAXone Sodium 1 GM Injection Solution Reconstituted 1 (one) gram Ordered:07-Feb-2019 Rebecca Buitrago Start : 07-Feb-2019 End : 07-Feb-2019 Administered Comments:Site: Buttocks, (R) Lidocaine HCl (PF) 2 % Injection Solution 2 (two) ml Ordered:07-Feb-2019 Rebecca Buitrago Start : 07-Feb-2019 End : 07-Feb-2019 Administered Comments:Site: Buttocks, (R) Amoxicillin 500 MG Oral Capsule 2 (two) Capsule Capsule every eight hours for 10 days Quantity: 60 {Capsule} Refills: 0 Ordered:28-Mar-2019 Rebecca Buitrago Start : 06-Feb-2019 End : 28-Mar-2019 Inactive Comments:Take with food. busPIRone HCl 5 MG Oral Tablet 1 (one) Tablet May take 1 tab BID if needed for anxiety for 30 days Quantity: 60 {Tablet} Refills: 0 Ordered:27-Sep-2019 Emilia Boo NP Start : 27-Sep-2019 End : 27-Oct-2019 Inactive Claritin 10 MG Oral Tablet 1 (one) Tablet Tablet daily for 30 days Quantity: 30 {Tablet} Refills: 0 Ordered:28-Mar-2019 Rebecca Buitrago Start : 06-Feb-2019 End : 28-Mar-2019 Inactive Escitalopram Oxalate 10 MG Oral Tablet 1 (one) Tablet Start with 1/2 tab daily after supper for a week then increase to 1 tab daily after supper for 30 days Quantity: 30 {Tablet} Refills: 0 Ordered:27-Sep-2019 Emilia Boo NP Start : 27-Sep-2019 End : 27-Oct-2019 Inactive Fluticasone Propionate 50 MCG/ACT Nasal Suspension 1 (one) [place] twice a day for 30 days Quantity: 120 {[place]} Refills: 0 Ordered:28-Mar-2019 Rebecca Buitrago Start : 06-Feb-2019 End : 28-Mar-2019 Inactive Comments:Use 2 sprays in each nostril twice a day for 14 days, then use 1 spray in each nostril. Rinse mouthafter each use. Forte Oral Tablet 1 daily Inactive Vitamins 28-0.8 MG Oral Tablet 1 daily (28-0.8 MG) Inactive Promethazine HCl 25 MG Oral Tablet 1 every 6 hours, prn (25 MG) Inactive Promethazine HCl 6.25 MG/5ML Oral Syrup 10 Milliliter Milliliter every six hours, as needed for cough for 10 days Quantity: 400 {Milliliter} Refills: 0 Ordered:28-Mar-2019 Rebecca Buitrago Start : 07-Feb-2019 End : 28-Mar-2019 Inactive Comments:Medication taken as needed. Do not drive or operate machinery while taking, will cause drowsiness. Sulfamethoxazole-Trimethoprim 800-160 MG Oral Tablet 1 (one) Tablet Take one tab orally BID with full glass of water for 10 days Quantity: 20 {Tablet} Refills: 0 Ordered:28-Mar-2019 Emilia Boo NP Start : 28-Mar-2019 End : 07-Apr-2019 Inactive Comments:Increase clear liquids and add Davie snaps and davie-swathi with jello/popsickles/and 4 ounces of cranberry juice daily Vistaril 25 MG Oral Capsule 1 (one) Capsule Capsule every eight hours, as needed for cough/congestion for 10 days Quantity: 30 {Capsule} Refills: 0 Ordered:28-Mar-2019 Rebecca Buitrago Start : 06-Feb-2019 End : 28-Mar-2019 Inactive Comments:Medication taken as needed. Allergies and Adverse Reactions Name Dates Details Benadryl Allergy *ANTIHISTAMINES* (Allergy) Status: Active TraMADol HCl *ANALGESICS - OPIOID* (Allergy) Status: Active Past Medical History Name Dates Details Bronchitis, complicated (J40, 490) Comme nts: We will give her Rocephin 1 gm IM in the office and she is to RTC tomorrow for another Rocephin 1 gm IM. We will also treat her with high dose Amocillin due to her . We are giving her Phenerg an cough syrup and ricardo casiano instructed her to use locally grown honey for cough during the day if possible. We also gave her Symbicort and gave her a sample of 160 mcg/4.5 mcg to use twice a day for bronch ospams. She is kimberly rgic to Benadryl (causes itching) so we have started her on Vistaril for her congestion and ear fullness, we did caution her not to use the Vistaril and Phenergan cough syrup togethe r and that the [place] ril may also cause itching.Reports cough, fever, sore throat, hoarseness and ear fullness for the past 3 days. She reports that the cough is productive only when she vomits and the vomitus has mucous i n it. She is in her 3rd trimester of . Status: Resolved as of 28-Mar-2019 Nausea (R11.0, 787.02) Status: Inactive as of 27-Sep-2019 UTI symptoms (R39.9, 788.99) Comments: U /A positive for leukocytes and protein and blood, she is three weeks post delivery.Possible early Pyelonephritis with nausea, chills and back pain- past hustory of renal calculi and post approx three weeks Status: Resolved as of 27-Sep-2019 Wheezing without diagnosis of asthma (R06.2, 786.07) Comments: On exam, has audible expiratory wheezing which can be heard on entering room. Given neb treatment with ipratropium/albuterol 0.5/2.5 mg with little improvement. Nauseated with vomitus during neb treat ment, given Zofran 4 mg IM. She is anxious and concerned about her baby. We will admit to her the hospital overnight for oxygen therapy with pulmicort nebs, Prednisone po and Singulair, Tussinex for c ough, IV fluids for hydration and Ativan IV for anxiety. We will monitor her baby with EFM, 20 minutes strips, bid. She is being admitted to Dr. Cruz.She is here as follow up from Monday where she p resented to the Brandi wong's office with complaint of coughing and was treated with Amoxicillin po and Rocephin IM times 2 doses for bronchitis. She is here today with complaint of wheezing, unable to eat and weakness. Status: Resolved as of 28-Mar-2019 Procedures Procedure Dates Details Follow up in 2 weeks or sooner if sx's Date: 27-Sep-2019 change or worsen Follow up -Call or Make appt after Date: 27-Sep-2019 diagnostic tests to review results.of CXR and labs Varicose Veins: cardiovascular Date: 27-Sep-2019 CHEST XRAY, PA & LATERAL ([id number]) Date: 27-Sep-2019 Anxiety: stress Date: 27-Sep-2019 Heart Palpitations *: cardiovascular Date: 27-Sep-2019 health EKG ([id number]) Date: 27-Sep-2019 Follow up in 2 weeks or sooner if needed Date: 28-Mar-2019 Urinary Tract Infection in Women *: Date: 28-Mar-2019 pyelonephritis UTI, Female Adult Date: 28-Mar-2019 LIDOCAINE 10mg/1ml (J2001) Date: 07-Feb-2019 Completed Jan-2019 ROCEPHIN 250 MG (J0696) Date: 07-Feb-2019 Completed Follow up in 2 weeks Date: 06-Feb-2019 Follow up in 1 day Date: 06-Feb-2019 ROCEPHIN 250 MG (J0696) Date: 06-Feb-2019 Completed Comments: rocephin 1 gm IM ADMINISTRATION FEE ([id number]) Date: 06-Feb-2019 Completed Jan-2019 Delivery Completed Gallbladder Surgery - Laparoscopic Compl eted Family History Name Dates Details Depression Status: Active Diabetes Mellitus Status: Active Hypertension Status: Active Social History Name Dates Details Caffeine Use Status: Active Exercise History: walking. Status: Activ e No Drug Use Status: Active Non Drinker/No Alcohol Use Status: Activ e Non Smoker/No Tobacco Use Status: Active Seat Belt Use: Almost always uses seat belts. Status: Active Sun Exposure Status: Active Vital Signs Date Test Result Details 27-Sep-20198:30 Body temperature 96.7 f Comments: Metho d: Oral Heart Rate 65 /min Comments: Pattern: R egular Respiratory rate 18 /min Comments: Pattern: U nlabored O2 SAT 100 % Comments: Room air Systolic blood pressure 126 mm[Hg] Comments: Patien t Position: Sitting; Cuff Location: Left Arm; Cuff Size: Standard Diastolic blood pressure 85 mm[Hg] Comments: Patie nt Position: Sitting; Cuff Location: Left Arm; Cuff Size: Standard Weight 260 lb Body height 66 in Body mass index (BMI) [Ratio] 41.96 kg/m2 Body surface area Derived from formula 2.24 m2 [id number] Body temperature 97.1 f Comments: Meth od: Axillary Heart Rate 118 /min Comments: Pattern: R egular Respiratory rate 20 /min Comments: Pattern: U nlabored O2 SAT 100 % Comments: Room air Systolic blood pressure 125 mm[Hg] Comments: Patien t Position: Sitting; Cuff Location: Left Arm; Cuff Size: Standard Diastolic blood pressure 86 mm[Hg] Comments: Patie nt Position: Sitting; Cuff Location: Left Arm; Cuff Size: Standard Weight 272 lb Body height 66 in Body mass index (BMI) [Ratio] 43.90 kg/m2 Body surface area Derived from formula 2.28 m2 [id number] Body temperature 97.2 f Heart Rate 124 /min Comments: Pattern: R egular Respiratory rate 18 /min Comments: Pattern: U nlabored O2 SAT 100 % Comments: Room air Weight 274 lb Body height 66 in Body mass index (BMI) [Ratio] 44.22 kg/m2 Body surface area Derived from formula 2.29 m2 [id number] Body temperature 98.3 f Heart Rate 141 /min Comments: Pattern: R egular Respiratory rate 18 /min Comments: Pattern: U nlabored O2 SAT 97 % Comments: Room air Systolic blood pressure 124 mm[Hg] Comments: Patien t Position: Sitting; Cuff Location: Left Arm; Cuff Size: Standard Diastolic blood pressure 84 mm[Hg] Comments: Patie nt Position: Sitting; Cuff Location: Left Arm; Cuff Size: Standard Weight 274 lb Body height 66 in Body mass index (BMI) [Ratio] 44.22 kg/m2 Body surface area Derived from formula 2.29 m2 Results Date Description Value Details [id number] H.PYLORI* ([id number]) Comments: H.Pylori i s negative in office 03-28-2019 H.Pylori* negative (Normal) Comments: Con trol line presentnegative equals negativepositive equals positive [id number]:40 HGB (HEMOGLOBIN) (86589) Comments: 019 HGB is 13.0 in the office today HGB (HEMOGLOBIN) 13.0 g/dL (Abnormal) Range: 14 .4 - 16.6 [id number] URINALYSIS, AUTOMATED, W/O MICRO Comment s: 3+ leukocytes,in office 03-28-2019 with 2 + Protein and 3+ blood but she is 3 weeks post -- Urine C&S is sent. ([id number]) UA - APPEARANCE clear (Normal) UA - COLOR dark yellow (Normal) UA - GLUCOSE Negative g/dL (Normal) UA - KETONES Negative mg/dL (Normal) UA - SPECIFIC GRAVITY 1.020 (Normal) UA - PH 6.0 (Normal) UA - BLOOD Large(+++) (Abnormal) UA - BILIRUBIN Negative (Normal) UA - PROTEIN 300(+++) mg/dL (Abnormal) UA - NITRITE Negative (Normal) UA - REDUCING SUBSTANCE n/a (Normal) UA - LEUKOCYTE ESTERASE Large(+++) (Abnormal) UA - URINE SEDIMENT n/a (Normal) UA - COMMENTS n/a (Normal) Treatment Plan DIMERIC INHIBIN A ASSAY(PREM) (45252); Ordered: 09/27/2019; Note: D Dimer/ 6 months post op deliveryCMP (56569); Ordered: 09/27/2019CBC, PLATELETS & AUT DIFF (29408); Ordered: 09/27/2019THYROXINE FREE (07408); Ordered: 09/27/2019TT4 (THYROXINE TOTAL) (95614); Ordered: 09/27/2019TSH (THYROID STIMULATING HORMONE) (60488); Ordered: 09/27/2019URINE C&S (89213); Ordered: 03/28/2019STREP SWAB (38156); Ordered: 02/06/2019Influenza A & B Ag (38680); Ordered: 02/06/2019 Advance Directives No Advance Directive Information Available Encounters Review On: 28-Jul-2020 15:25 [facility] Office Visit - Heart palpitations (785.1 | R00.2), Situational anxiety (300.09 | F41.8), Varicose veins of leg with edema (454.8 | I83.899) On: 27-Sep-2019 8:30 Encounter Reason: Anxiety - The onset of the anxiety has been gradual (Pt reports past hx of panic /anxiety attacks as a teenager but had not been a problem for awhile. Since the of her daughter approx 6 months ago End: 27-Sep-2019 12:54 she has had a recurrence of sx's assoc with palpitations, heaviness in chest and feelings of nervousness and anxiousness. Her 's job now has him OOT 11 days and then home 3 days and she has bee n staying with her parents due to her in creased sx's. She denies chest pain but does feel a heavy pressure at times in her chest. She is noted to have varicose veins tatiana and had a delivery. We will get CXR and D-Dimmer with thyroid panel, CBC and CMP. EKG is done in office and is slightly bradycardic at 58 and is regular and sinus rhythm.She reoprts she used to have hypoglycemic episodes wh en a teenager but this is not been assoc with her sx's and she did not have any gestational HTN or hyper or hypo glycemia. Her sx's have been present intermittently) and has been occurring for 6 months. The course has been increasing. The sym ptoms have been associated with chest pain and palpitations. Note for "Anxiety": Patient states she has been having SOB,chest pressure,panic attacks,and swelling in her lower extremities.Patient states she has had a echo and and a stress test and she states the test was normal.[facility] Office Visit - Nausea (787.02 | R11.0), Fatigue (780.79 | R53.83), Low back pain (724.2 | M54.5), UTI symptoms (788.99 | R39.9) On: 28-Mar-2019 13:30 Encounter Reason: Nausea - The onset of the nausea has been gradual (03-28-2019 Pt reports she has felt chilled and had back pain since Monday and has been nauseated since her delivery. The in office H.Pylori was negative End: 28-Mar-2019 17:07 today but her urine is positive for daniel kocytes, protein, & blood is postive but she did have a three weeks ago. We will send a urine C&S. She was anemic with her but of fice Hgb is at 13.0 today and she is sti ll on her vitamins.Today she has been symptomatic for back pain for 3 to 4 days and nausea--) and has been occurring in a persistent pattern for 2 weeks . The course has been recurrent. The olinda sea has no relationship to meals. The symptoms have no aggravating factors. There has been no associated vomiting. Note for "Nausea": Pt is here today with compla ints of having nausea since she had her baby 2 weeks ago. She gets nauseated every time she tries to eat or she doesn't have an appetitive to each. Pt was anemia after she gave to her child. Tod ay it is 13.0 in the office. She is also having LBP so we will check a UA on her. She also wants to be checked for H. Pylori in the office today. Pt is allergic to Tramadol and Benadryl.[facility] Office Visit - Wheezing without diagnosis of asthma (7 86.07 | R06.2) On: 08-Feb-2019 12:00 Encounter Reason: Cough - Note for "Coug h": Patient here today states she has bronchitis but not getting better that she's extremely weak and has no appetite, she also continues to cough. She states tightness in chest w End: 08-Feb-2019 14:57 ith wheezing. She states she's taking a bt therapy as ordered and still not getting better, she's also 8 months . She denies pain at this time 0/10 but does states she's achy.[facility] Nurse Visit - Bronchitis, complicated (490 | J40) On: 07-Feb-2019 10:30 [facility] End: 07-Feb-2019 11:58 Office Visit - Bronchitis, complicated ( 490 | J40), Environmental and seasonal allergies (477.8 | J30.89) On: 06-Feb-2019 13:30 Encounter Reason: Cough - The cough has been occurring for 3 days. The course has been increasing. The cough is characterized as dry and productive of mucoid sputum. The amount of sputum produced is scanty. The cough occ End: 06-Feb-2019 13:58 urs all the time. The symptoms have been associated with fever, headache, night sweats and sore throat. Note for "Cough": Pt is here today with complaints of having a cough that is mainly but she does c ough up some at times. Pt has been havin g chills and running fever. She has been nauseated and vomiting. Pt vomited in the office today while I was working her up. She feels tight in her chest and when she coughs it feels worse. Pt is 8 month s and can't take much medication. She is currently taking Tylenol, Vitamins, and Phenergan. She is allergic to Benadryl and Tramadol.[facility] Insurance Anamika Buitrago; a guarantor
[2020-07-28] MEDS: MILK OF MAGNESIA PO PRN (19:05)
[2020-07-28] MEDS: NS 1000 ML 1,000 ML IV SCH (19:50)
[2020-07-28] MEDS: REMDESIVIR (INVESTIGATIONAL DRUG GS-5734) 100 MG in NS 250 ML IV 250 ML IV SCH (22:01)
[2020-07-29] MEDS: ASCORBIC ACID INJ MULTI-DOSE VIAL 1,500 MG in NS 100 ML IV 100 ML IV SCH ×4 (01:59→21:01)
[2020-07-29 05:17] LABS: BASOPHILS % (AUTO) 0.1 % (0.2-1.0); HEMOGLOBIN 12.4 g/dL (12.0-16.0); LYMPHOCYTES # (AUTO) 0.8 X10^3/uL (1.3-2.9); LYMPHOCYTES % (AUTO) 16.2 % (21.0-51.0); MEAN CORPUSCULAR HEMOGLOBIN 29.2 pg (27.0-34.0); MEAN CORPUSCULAR HGB CONC 32.5 g/dL (33.0-35.0); MEAN CORPUSCULAR VOLUME 89.9 fL (80.0-100.0); MEAN PLATELET VOLUME 10.8 fL (7.4-11.0); MONOCYTES # (AUTO) 0.2 x10^3/uL (0.3-0.8); NEUTROPHILS % (AUTO) 79.7 % (42.0-75.0); PLATELET COUNT 106 X10^3/uL (150.0-450.0); RED BLOOD COUNT 4.23 X10^6/uL (3.5-5.4); RED CELL DISTRIBUTION WIDTH 13.9 % (11.6-16.5); WHITE BLOOD COUNT 5.1 X10^3/uL (3.6-10.0)
[2020-07-29 05:40] LABS: ALANINE AMINOTRANSFERASE 24 Units/L (12-78); ALBUMIN 2.8 g/dL (3.4-5.0); ALKALINE PHOSPHATASE 57 Units/L (46-116); ASPARTATE AMINO TRANSFERASE 6 Units/L (15-37); BLOOD UREA NITROGEN 13 mg/dL (7-18); CALCIUM 7.7 mg/dL (8.5-10.1); CARBON DIOXIDE 26.3 mmol/L (21-32); CHLORIDE 104 mmol/L (98-107); COR CA(FOR HYPOALB) 8.7 mg/dL (8.5-10.1); COR NA(FOR HYPERGLY) 140 mmol/L (136-145); CREATININE 0.74 mg/dL (0.55-1.02); SODIUM 138 mmol/L (136-145); TOTAL PROTEIN 6.1 g/dL (6.4-8.2); eGFR NON BLACK RACES > 60 (>60)
--- NOTE | 2020-07-29 08:35 | PCM.PROG ---
Progress Note Progress Note for Day of Date of Exam: 07/29/20 Subjective Subjective: Pt is a 34 yo f admitted for COVID19 pneumonia (positive at [facility], 07/16). She reports feeling a little better this morning. States that her strength is slowly returning. She is off of her supplemental O2 via nasal cannula. Labs/imaging: Wbc 5.1, Hgb 12.4, Plt 106, Na 138, K 4.2, Cr 0.74, Gluc 195, CRP 1.3>0.8. Her treatment course includes: IV Rocephin, Remdesivir, IV solumedrol, Bronchodilators, supplemental O2, Tricor, I/S, immune supporting supplements, pneumonia protocol. Will evaluate if ambulatory supplemental O2 is needed. PT to work with her today. She will be getting her 5th dose of Remdesivir tonight. Continue to monitor and follow up labs/imaging in the [facility] Past Medical Family Social History Past Med/Fam/Surg Hx: No changes since H&P Allergies: Allergies diphenhydramine [From Benadryl] Allergy (Verified 07/24/20 12:56) tramadol Allergy (Verified 07/24/20 12:56) Review of Systems ROS: No change since H&P Vital Signs and I&O's Vital Signs: Temperature 98.2 F Pulse Rate [Right] 61 Pulse Rate 70 Respiratory Rate 18 Blood Pressure [Right Arm] 138/87 Blood Pressure [Left Arm] 95/54 Blood Pressure 126/99 O2 Sat by Pulse Oximetry 97 Intake and Output: Intake & Output 07/26/20 07/27/20 07/28/20 07/29/20 23:59 23:59 23:59 23:59 Intake Total 2038 3258 / 3258 3535 / 3535 450 / 450 Balance 2038 3258 / 3258 3535 / 3535 450 / 450 Physical Exam Oriented: Normal Eyes: Normal Ear: Normal Nose: Normal Throat: Normal Respiratory: Diminished Cardiovascular: Normal : Normal Auscultation: Bowel Sounds: Normal Tenderness: Normal Skin: Normal Musculoskeletal: Normal Psychiatric: Normal Mood Description: Calm and Appropriate Affect: Normal Speech Pattern: Clear and Appropriate Laboratory and Diagnostics Result Diagrams: 07/29/20 04:35 07/29/20 04:35 Labs: Laboratory WBC 5.1 X10^3/uL (3.6-10.0) 07/29/20 04:35 RBC 4.23 X10^6/uL (3.5-5.4) 07/29/20 04:35 Hgb 12.4 g/dL (12.0-16.0) 07/29/20 04:35 Hct 38.0 % (36.0-47.0) 07/29/20 04:35 MCV 89.9 fL (80.0-100.0) 07/29/20 04:35 MCH 29.2 pg (27.0-34.0) 07/29/20 04:35 MCHC 32.5 g/dL (33.0-35.0) L 07/29/20 04:35 RDW 13.9 % (11.6-16.5) 07/29/20 04:35 Plt Count 106 X10^3/uL (150.0-450.0) L 07/29/20 04:35 MPV 10.8 fL (7.4-11.0) 07/29/20 04:35 Neut % (Auto) 79.7 % (42.0-75.0) H 07/29/20 04:35 Lymph % (Auto) 16.2 % (21.0-51.0) L 07/29/20 04:35 [place] % (Auto) 4.0 % (0.0-13.0) 07/29/20 04:35 Eos % (Auto) 0.0 % (0.9-2.9) L 07/29/20 04:35 Baso % (Auto) 0.1 % (0.2-1.0) L 07/29/20 04:35 Neut # (Auto) 4.0 x10^3/uL (2.2-4.8) 07/29/20 04:35 Lymph # (Auto) 0.8 X10^3/uL (1.3-2.9) L 07/29/20 04:35 [place] # (Auto) 0.2 x10^3/uL (0.3-0.8) L 07/29/20 04:35 Eos # (Auto) 0.0 x10^3/uL (0.0-0.2) 07/29/20 04:35 Baso # (Auto) 0.0 X10^3/uL (0.0-0.1) 07/29/20 04:35 Absolute Nucleated RBC 0.1 /100WBC 07/29/20 04:35 D-Dimer < 200 ng/mLDDU (0-239) 07/26/20 12:50 Sodium 138 mmol/L (136-145) 07/29/20 04:35 Corrected Sodium 140 mmol/L (136-145) 07/29/20 04:35 Potassium 4.2 mmol/L (3.5-5.1) 07/29/20 04:35 Chloride 104 mmol/L (98-107) 07/29/20 04:35 Carbon Dioxide 26.3 mmol/L (21-32) 07/29/20 04:35 BUN 13 mg/dL (7-18) 07/29/20 04:35 Creatinine 0.74 mg/dL (0.55-1.02) 07/29/20 04:35 Est GFR (MDRD) Af Amer > 60 (>60) 07/29/20 04:35 Est GFR (MDRD) Non-Af > 60 (>60) 07/29/20 04:35 Glucose 195 mg/dL (65-99) H 07/29/20 04:35 Calcium 7.7 mg/dL (8.5-10.1) L 07/29/20 04:35 Corrected Calcium 8.7 mg/dL (8.5-10.1) 07/29/20 04:35 Total Bilirubin 0.20 mg/dL (0.2-1.0) 07/29/20 04:35 AST 6 Units/L (15-37) L 07/29/20 04:35 ALT 24 Units/L (12-78) 07/29/20 04:35 Alkaline Phosphatase 57 Units/L (46-116) 07/29/20 04:35 Creatine Kinase 19 Units/L (26-192) L 07/24/20 13:26 CK-MB (CK-2) < 1.0 ng/mL (0-4.0) 07/24/20 13:26 CK/CKMB % Calc 0.0 % (<4) 07/24/20 13:26 Troponin I < 0.02 ng/mL (0-1.5) 07/24/20 13:26 C-Reactive Protein 0.80 mg/L (0-3.0) 07/29/20 04:35 Total Protein 6.1 g/dL (6.4-8.2) L 07/29/20 04:35 Albumin 2.8 g/dL (3.4-5.0) L 07/29/20 04:35 Globulin 3.3 g/dL (2.5-4.5) 07/29/20 04:35 Albumin/Globulin Ratio 0.8 Ratio (1.1-2.1) L 07/29/20 04:35 Plan (1) Pneumonia due to COVID-19 virus: Status: Acute Plan: IV Remdesivir, IV Solumedrol. supplemental O2, bronchodilators. Pneumonia protocol.
[2020-07-29] MEDS: LOVENOX INJ 30 MG SYR SC SCH ×2 (08:39→21:02)
[2020-07-29] MEDS: VITAMIN D3 125 mcg (5,000 UNITS) PO SCH (08:40)
[2020-07-29] MEDS: MILK OF MAGNESIA PO PRN (08:40)
[2020-07-29] MEDS: COLACE CAP 100 MG PO PRN (08:40)
[2020-07-29] MEDS: TRICOR TAB 160 MG PO SCH (08:40)
[2020-07-29] MEDS: ZOFRAN INJ 4 MG VIAL IVP PRN (08:41)
[2020-07-29] MEDS: SOLU-Medrol 125 MG VIAL IVP SCH ×2 (08:41→21:01)
[2020-07-29] MEDS: VITAMIN A PO SCH (08:41)
[2020-07-29] MEDS: ZINC SULFATE PO SCH ×2 (08:41→21:01)
[2020-07-29] MEDS: PEPCID TAB 20 MG PO SCH ×2 (08:43→21:02)
[2020-07-29] MEDS ORDERED: PEPCID TAB 20 MG ONE (08:43)
[2020-07-29] MEDS: DUONEB 0.5 MG/3 MG (3 mL) NEB SCH ×4 (08:55→20:10)
[2020-07-29] MEDS: ROCEPHIN VIAL 1 GRAM 1 G in NS 100 ML IV + SPIKE MINIBAG* 100 ML IV SCH (09:14)
[2020-07-29] MEDS: NS 1000 ML 1,000 ML IV SCH (21:00)
[2020-07-29] MEDS: NORCO 5/325 MG TAB PO PRN (21:00)
[2020-07-30] MEDS: ASCORBIC ACID INJ MULTI-DOSE VIAL 1,500 MG in NS 100 ML IV 100 ML IV SCH ×2 (03:01→09:49)
[2020-07-30 05:01] LABS: BASOPHILS % (AUTO) 0 % (0.2-1.0); HEMATOCRIT 38.7 % (36.0-47.0); HEMOGLOBIN 12.6 g/dL (12.0-16.0); LYMPHOCYTES # (AUTO) 0.8 X10^3/uL (1.3-2.9); LYMPHOCYTES % (AUTO) 15.5 % (21.0-51.0); MEAN CORPUSCULAR HEMOGLOBIN 28.9 pg (27.0-34.0); MEAN CORPUSCULAR HGB CONC 32.5 g/dL (33.0-35.0); MEAN PLATELET VOLUME 10.7 fL (7.4-11.0); MONOCYTES # (AUTO) 0.2 x10^3/uL (0.3-0.8); MONOCYTES % (AUTO) 3.8 % (0.0-13.0); NEUTROPHILS # (AUTO) 4.2 x10^3/uL (2.2-4.8); NEUTROPHILS % (AUTO) 80.7 % (42.0-75.0); PLATELET COUNT 113 X10^3/uL (150.0-450.0); RED BLOOD COUNT 4.34 X10^6/uL (3.5-5.4); RED CELL DISTRIBUTION WIDTH 14.2 % (11.6-16.5); WHITE BLOOD COUNT 5.3 X10^3/uL (3.6-10.0)
[2020-07-30 05:15] LABS: ALANINE AMINOTRANSFERASE 21 Units/L (12-78); ALBUMIN 2.9 g/dL (3.4-5.0); ALKALINE PHOSPHATASE 57 Units/L (46-116); ASPARTATE AMINO TRANSFERASE 6 Units/L (15-37); BLOOD UREA NITROGEN 14 mg/dL (7-18); CALCIUM 7.8 mg/dL (8.5-10.1); CARBON DIOXIDE 28.7 mmol/L (21-32); CHLORIDE 103 mmol/L (98-107); COR CA(FOR HYPOALB) 8.7 mg/dL (8.5-10.1); COR NA(FOR HYPERGLY) 141 mmol/L (136-145); CREATININE 0.81 mg/dL (0.55-1.02); SODIUM 138 mmol/L (136-145); TOTAL PROTEIN 6.2 g/dL (6.4-8.2); eGFR NON BLACK RACES > 60 (>60)
[2020-07-30] MEDS: ROCEPHIN VIAL 1 GRAM 1 G in NS 100 ML IV + SPIKE MINIBAG* 100 ML IV SCH (08:12)
[2020-07-30] MEDS: ZOFRAN INJ 4 MG VIAL IVP PRN (08:22)
[2020-07-30] MEDS: LOVENOX INJ 30 MG SYR SC SCH (08:22)
[2020-07-30] MEDS: PEPCID TAB 20 MG PO SCH (08:56)
[2020-07-30] MEDS: SOLU-Medrol 125 MG VIAL IVP SCH (08:56)
[2020-07-30] MEDS: TRICOR TAB 160 MG PO SCH (08:56)
[2020-07-30] MEDS: ZINC SULFATE PO SCH (08:57)
[2020-07-30] MEDS: VITAMIN D3 125 mcg (5,000 UNITS) PO SCH (08:57)
[2020-07-30] MEDS: VITAMIN A PO SCH (08:57)
[2020-07-30] MEDS: DUONEB 0.5 MG/3 MG (3 mL) NEB SCH (09:10)
[2020-07-30 09:14] VITALS: BP 132/80
--- NOTE | 2020-07-30 09:20 | W.DIS.FURT ---
Summary of Discharge Discharge Summary of Date Date of Exam: 07/30/20 Admission Date Date of Admission: 07/24/20 Admission Diagnosis Hospital Course: Pt is a 34 yo f admitted for COVID19 pneumonia (positive at [facility], 07/16). Her hospital course and treatments included: supplemental O2 via nasal cannula. IV Rocephin, Remdesivir x 5d, IV solumedrol, Bronchodilators, Tricor, I/S, immune supporting supplements. Pt gradually improved and did not require any supplemental O2 on discharge. Labs/imaging: Wbc 5.3, Hgb 12.6, Plt 113, Na 138, K 4.7, Cr 0.81, Gluc 210, CRP 0.6. Pt was discharge home in stable condition, instructing to complete 5 day course of prednisone. F/u w/ pcp in 1-2 weeks. Vital Signs: Vital Signs (72 hours) 07/27/20 09:50 07/27/20 12:00 07/27/20 13:10 Temperature 98.7 F Pulse Rate 66 59 L Pulse Rate [Right] 54 L Respiratory Rate 22 Blood Pressure [Right Arm] 121/67 O2 Sat by Pulse Oximetry 94 L 93 L 94 L 07/27/20 16:00 07/27/20 17:25 07/27/20 20:00 Temperature 97.8 F 97.9 F Pulse Rate 59 L Pulse Rate [Right] 58 L 68 Respiratory Rate 20 24 Blood Pressure [Right Arm] 108/54 136/66 O2 Sat by Pulse Oximetry 95 95 98 07/27/20 20:42 07/27/20 21:42 07/27/20 21:50 Temperature Pulse Rate 54 L Pulse Rate [Right] Respiratory Rate 24 22 Blood Pressure [Right Arm] O2 Sat by Pulse Oximetry 96 07/28/20 00:00 07/28/20 04:00 07/28/20 08:00 Temperature 98.1 F 97.7 F 97.8 F Pulse Rate Pulse Rate [Right] 58 L 52 L 60 Respiratory Rate 16 17 18 Blood Pressure [Right Arm] 124/65 120/57 124/56 O2 Sat by Pulse Oximetry 95 95 96 07/28/20 09:33 07/28/20 09:35 07/28/20 10:33 Temperature Pulse Rate 60 Pulse Rate [Right] Respiratory Rate 20 20 Blood Pressure [Right Arm] O2 Sat by Pulse Oximetry 96 07/28/20 12:00 07/28/20 16:00 07/28/20 20:00 Temperature 98.1 F 97.6 F 98.1 F Pulse Rate Pulse Rate [Right] 56 L 61 57 L Respiratory Rate 18 22 24 Blood Pressure [Right Arm] 128/68 122/64 128/67 O2 Sat by Pulse Oximetry 96 93 L 98 07/28/20 20:05 07/29/20 00:00 07/29/20 04:00 Temperature 98.1 F 97.8 F Pulse Rate 70 Pulse Rate [Right] 55 L 52 L Respiratory Rate 16 17 Blood Pressure [Right Arm] 118/61 124/64 O2 Sat by Pulse Oximetry 95 94 L 94 L 07/29/20 08:00 07/29/20 08:55 07/29/20 12:00 Temperature 98.2 F 97.3 F L Pulse Rate Pulse Rate [Right] 61 62 Respiratory Rate 18 18 Blood Pressure [Right Arm] 138/87 125/63 O2 Sat by Pulse Oximetry 97 96 95 07/29/20 16:00 07/29/20 20:00 07/29/20 20:10 Temperature 97.6 F 97.6 F Pulse Rate 67 Pulse Rate [Right] 57 L 60 Respiratory Rate 20 18 Blood Pressure [Right Arm] 115/62 122/57 O2 Sat by Pulse Oximetry 95 96 97 07/29/20 21:00 07/29/20 22:00 07/30/20 00:00 Temperature 98 F Pulse Rate Pulse Rate [Right] 77 Respiratory Rate 22 18 20 Blood Pressure [Right Arm] 108/57 O2 Sat by Pulse Oximetry 93 L 07/30/20 04:00 07/30/20 08:00 Temperature 97.8 F 97.4 F L Pulse Rate Pulse Rate [Right] 50 L 47 L Respiratory Rate 16 20 Blood Pressure [Right Arm] 131/74 132/80 O2 Sat by Pulse Oximetry 94 L 95 Labs: Laboratory Last Values WBC 5.3 X10^3/uL (3.6-10.0) 07/30/20 04:30 RBC 4.34 X10^6/uL (3.5-5.4) 07/30/20 04:30 Hgb 12.6 g/dL (12.0-16.0) 07/30/20 04:30 Hct 38.7 % (36.0-47.0) 07/30/20 04:30 MCV 89.0 fL (80.0-100.0) 07/30/20 04:30 MCH 28.9 pg (27.0-34.0) 07/30/20 04:30 MCHC 32.5 g/dL (33.0-35.0) L 07/30/20 04:30 RDW 14.2 % (11.6-16.5) 07/30/20 04:30 Plt Count 113 X10^3/uL (150.0-450.0) L 07/30/20 04:30 MPV 10.7 fL (7.4-11.0) 07/30/20 04:30 Neut % (Auto) 80.7 % (42.0-75.0) H 07/30/20 04:30 Lymph % (Auto) 15.5 % (21.0-51.0) L 07/30/20 04:30 [place] % (Auto) 3.8 % (0.0-13.0) 07/30/20 04:30 Eos % (Auto) 0.0 % (0.9-2.9) L 07/30/20 04:30 Baso % (Auto) 0 % (0.2-1.0) L 07/30/20 04:30 Neut # (Auto) 4.2 x10^3/uL (2.2-4.8) 07/30/20 04:30 Lymph # (Auto) 0.8 X10^3/uL (1.3-2.9) L 07/30/20 04:30 [place] # (Auto) 0.2 x10^3/uL (0.3-0.8) L 07/30/20 04:30 Eos # (Auto) 0.0 x10^3/uL (0.0-0.2) 07/30/20 04:30 Baso # (Auto) 0.0 X10^3/uL (0.0-0.1) 07/30/20 04:30 Absolute Nucleated RBC 0.1 /100WBC 07/30/20 04:30 D-Dimer < 200 ng/mLDDU (0-239) 07/26/20 12:50 Sodium 138 mmol/L (136-145) 07/30/20 04:30 Corrected Sodium 141 mmol/L (136-145) 07/30/20 04:30 Potassium 4.7 mmol/L (3.5-5.1) 07/30/20 04:30 Chloride 103 mmol/L (98-107) 07/30/20 04:30 Carbon Dioxide 28.7 mmol/L (21-32) 07/30/20 04:30 BUN 14 mg/dL (7-18) 07/30/20 04:30 Creatinine 0.81 mg/dL (0.55-1.02) 07/30/20 04:30 Est GFR (MDRD) Af Amer > 60 (>60) 07/30/20 04:30 Est GFR (MDRD) Non-Af > 60 (>60) 07/30/20 04:30 Glucose 210 mg/dL (65-99) H 07/30/20 04:30 Calcium 7.8 mg/dL (8.5-10.1) L 07/30/20 04:30 Corrected Calcium 8.7 mg/dL (8.5-10.1) 07/30/20 04:30 Total Bilirubin 0.30 mg/dL (0.2-1.0) 07/30/20 04:30 AST 6 Units/L (15-37) L 07/30/20 04:30 ALT 21 Units/L (12-78) 07/30/20 04:30 Alkaline Phosphatase 57 Units/L (46-116) 07/30/20 04:30 Creatine Kinase 19 Units/L (26-192) L 07/24/20 13:26 CK-MB (CK-2) < 1.0 ng/mL (0-4.0) 07/24/20 13:26 CK/CKMB % Calc 0.0 % (<4) 07/24/20 13:26 Troponin I < 0.02 ng/mL (0-1.5) 07/24/20 13:26 C-Reactive Protein 0.60 mg/L (0-3.0) 07/30/20 04:30 Total Protein 6.2 g/dL (6.4-8.2) L 07/30/20 04:30 Albumin 2.9 g/dL (3.4-5.0) L 07/30/20 04:30 Globulin 3.3 g/dL (2.5-4.5) 07/30/20 04:30 Albumin/Globulin Ratio 0.9 Ratio (1.1-2.1) L 07/30/20 04:30 Reason For Visit: COVID 19, PNEUMONIA Discharge Date Discharge Date: 07/30/20 Discharge Diagnosis All Active Problems (Updated 07/25/20 @ 11:09 by Walter Gordon) Pneumonia due to COVID-19 virus (Acute) Dyspnea (Acute) COVID-19 (Acute) Polyhydramnios (Acute) delivery delivered (Acute) Nausea & vomiting (Acute) (Acute) Headache (Acute) SOB (shortness of breath) (Acute) Edema (Acute) UTI (urinary tract infection) during (Acute) Plan of Treatment: Continue with present treatment and follow up plan. Pt is to keep follow up appointment as instructed and take medications as ordered. Discharge Medications Discharge Medications: diphenhydramine [From Benadryl] Allergy (Verified 07/24/20 12:56) tramadol Allergy (Verified 07/24/20 12:56) CONTINUE taking the following medications NK 07/24/20 [History] Discharge Disposition Discharge Disposition: Home Discharge Condition: Stable
[2020-07-30] MEDS: NORCO 5/325 MG TAB PO PRN (10:48)
== END 2020-07-30 11:20 | disposition home or self-care (01) | DRG 177 ==
LOC: ER 12:40 → MED/SURG 18:51
PROVIDERS: ADMIT Internal Medicine; ATTEND Internal Medicine
DX: J12.89 Other viral pneumonia; R79.82 Elevated C-reactive protein (CRP); R26.89 Other abnormalities of gait and mobility; R06.02 Shortness of breath; U07.1 COVID-19